=== PATIENT | female | born 1955 | race Caucasian/White ===

== ENCOUNTER 2020-12-12 17:25 | Emergency (ER) | payer OTHER, SELFPAY ==
--- NOTE | ~2020-12-12 | XR_ITS ---
XR chest 2V DATE: 12/12/2020 17:55 INDICATION: Cough TECHNIQUE: 2 views COMPARISON: None FINDINGS: Mild cardiomegaly. No hilar or mediastinal enlargement. No pulmonary infiltrate or consolid ation, pleural effusion or pulmonary vascular congestion or pneumothorax. Diffuse osteopenia. IMPRESSION: Mild cardiomegaly; no active pulmonary disease Diffuse osteopenia Reviewed, dictated and finalized at location A.
[2020-12-12 17:38] VITALS: BP 116/72; PULSE 65; RESP 18; TEMP 36.9; O2SAT 98
--- NOTE | 2020-12-12 17:42 | ED.URI ---
HPI - URI/Sore Throat General Chief Complaint: Upper Respiratory Infection Stated Complaint: Cough Time Seen by Provider: 12/12/20 17:42 Source: patient Mode of arrival: ambulatory Limitations: no limitations History of Present Illness HPI Narrative: Osiris Dubose is a 65 yo female with a PMH of high cholesterol, HTN, asthma, GERD, comes to [facility] with 3 days of asthma symptoms after doing yard work on Monday and where she works there is a lot of dust because of [employer] being cut. States she does not feel short of breath and has a constant little aggravating cough Related Data Home Medications Medication Instructions Recorded Confirmed gemfibrozil 600 mg PO DAILY 03/25/19 12/12/20 lisinopril 20 mg PO DAILY 03/25/19 12/12/20 fenofibrate nanocrystallized 145 mg PO DAILY 12/12/20 12/12/20 pantoprazole 40 mg PO DAILY 12/12/20 12/12/20 Allergies Allergy/AdvReac Type Severity Reaction Status Date / Time No Known Allergies Allergy Verified 12/12/20 17:27 Review of Systems Review of Systems: CONSTITUTIONAL: Denies fever, chills, sweats. EYES: Denies visual changes, redness, discharge. ENT: Denies rhinorrhea, congestion, sore throat, otalgia. CARDIOVASCULAR: Denies chest pain, palpitations, edema. RESPIRATORY: Denies dyspnea, wheezing, has cough GASTROINTESTINAL: Denies abdominal pain, nausea, vomiting, diarrhea. GENITOURINARY: Denies dysuria, hematuria, abnormal discharge SKIN: Denies rash or itching. NEUROLOGIC: Denies numbness, or focal weakness. PSYCHIATRIC: Denies anxiety or depression. PMFSH Past Medical History Medical History Asthma GERD (gastroesophageal reflux disease) High cholesterol HTN (hypertension) Social History Social History (Updated 12/12/20 @ 18:10 by Lynnette Zarate CNP) Smoking status: Never smoker Alcohol intake: never Living arrangements: alone Gender identity (if verbalized by the patient): Female Comments At time of signature, I agree with nursing past medical, surgical, social and family history. There is no relevant family history pertinent to the presenting complaint. Exam Narrative: GENERAL: This is a well-nourished, well-developed patient, in mild distress. HEAD: normocephalic, atraumatic. EYES: Sclera clear/white. Vision is grossly intact. EARS: External ears normal, Hearing grossly intact. NOSE: External nose normal without nasal discharge, nares without redness, no rhinorrhea. THROAT: Mucous membranes moist, posterior pharynx pink and clear CARDIOVASCULAR: Regular rate and rhythm without murmurs, gallops, or rubs. RESPIRATORY: Coarse to auscultation. Breath sounds equal bilaterally. No wheezes, rales, or rhonchi. Intermittent dry cough while examining patient GASTROINTESTINAL: Abdomen soft, SKIN: warm, intact with no suspicious lesions or rash, good texture and turgor. NEURO: awake, alert, and oriented to person, place and time. There were no obvious focal neurologic abnormalities. Steady gait EXTREMITIES: Normal range of motion. BACK: Nontender without deformity Course Course Emergency Course: Patient here with increased use of inhaler and constant cough that is keeping her awake at night Chest x-ray done-mild cardiomegaly, no hilar or mediastinal enlargement. No pulmonary infiltrate or consolidation pleural effusion or pulmonary vascular congestion; diffuse osteopenia Given prednisone 60 mg here Started on prednisone 40 mg daily, Tessalon Perles, albuterol inhaler renewed; will continue to take Zyrtec and Flonase Vital Signs Vital signs: Vital Signs Temperature 98.4 F 12/12/20 17:38 Pulse Rate 65 12/12/20 17:38 Respiratory Rate 12/12/20 17:38 Blood Pressure 116/72 12/12/20 17:38 Pulse Oximetry 98 12/12/20 17:38 Temperature 98.4 F 12/12/20 17:38 Pulse Rate 65 12/12/20 17:38 Respiratory Rate 18 12/12/20 17:38 Blood Pressure 116/72 12/12/20 17:38 Pulse Oxi
[2020-12-12] MEDS: predniSONE 20 MG TABLET 60 MG PO (18:06)
== END 2020-12-12 18:38 | disposition home or self-care (01) ==
PROVIDERS: Emergency Provider Nurse Practitioner; PCP Internal Medicine
DX: J45.31 Mild persistent asthma with (acute) exacerbation (principal); I10 Essential (primary) hypertension
CPT/HCPCS: 71046; 99213; G0463; J7512

== ENCOUNTER 2021-08-13 08:35 | Emergency (ER) | payer OTHER, SELFPAY ==
--- NOTE | 2021-08-13 08:55 | ED.URI ---
HPI - URI/Sore Throat General Chief Complaint: Upper Respiratory Infection Stated Complaint: Cough Time Seen by Provider: 08/13/21 08:55 Source: patient Mode of arrival: ambulatory Limitations: no limitations History of Present Illness HPI Narrative: 66-year-old female presents with complaint of seasonal allergy symptoms with dry cough. Has had symptoms for 4 days. States that she takes Zyrtec twice a day, Singulair and Flonase. Called her primary care physician regarding dry cough and was told to take DayQuil NyQuil cold and sinus. Reports that she still has a dry cough. No shortness of breath. States that her coworkers are concerned that she is contagious. All systems reviewed and negative except as noted above. Related Data Home Medications Medication Instructions Recorded Confirmed gemfibrozil 600 mg PO DAILY 03/25/19 08/13/21 lisinopril 20 mg PO DAILY 03/25/19 08/13/21 fenofibrate nanocrystallized 145 mg PO DAILY 12/12/20 08/13/21 pantoprazole 40 mg PO DAILY 12/12/20 08/13/21 Allergies Allergy/AdvReac Type Severity Reaction Status Date / Time cat dander Allergy Unknown Verified 08/13/21 08:52 latex Allergy Rash Verified 08/13/21 08:52 mold Allergy Unknown Verified 08/13/21 08:52 pollen extracts Allergy Unknown Verified 08/13/21 08:52 tree and shrub pollen Allergy Unknown Verified 08/13/21 08:52 Review of Systems Review of Systems: CONSTITUTIONAL: Denies fever, chills, or sweats. EYES: Denies visual changes, redness, or discharge. ENT: Reports rhinorrhea, congestion. Denies sore throat, or otalgia. CARDIOVASCULAR: Denies chest pain, palpitations, or edema. RESPIRATORY: Reports cough. Denies dyspnea. GASTROINTESTINAL: Denies abdominal pain, nausea, vomiting, or diarrhea. GENITOURINARY: Denies dysuria or hematuria. SKIN: Denies rash or itching. MUSCULOSKELETAL: Denies back pain, joint pain, or myalgia. NEUROLOGIC: Denies headache, numbness, or weakness. PSYCHIATRIC: Denies anxiety or depression. All other systems reviewed are negative, except as documented in HPI. [facility] Past Medical History Medical History Asthma GERD (gastroesophageal reflux disease) High cholesterol HTN (hypertension) Social History Social History (Updated 12/12/20 @ 18:10 by Lynnette Zarate CNP) Smoking status: Never smoker Alcohol intake: never Gender identity (if verbalized by the patient): Female Comments At time of signature, agree with nursing past medical, surgical, social and family history. There is no relevant family history pertinent to the presenting complaint. Exam Narrative: GENERAL: This is a well-nourished, well-developed patient, in no apparent distress. HEAD: normocephalic, atraumatic. EYES: PERRL. Sclera clear/white. Vision is grossly intact. EARS: External ears normal, auditory canals clear and without drainage, TMs normal without perforation. Hearing grossly intact. NOSE: External nose normal with no obvious nasal discharge, nares without redness, no rhinorrhea. No sinus tenderness. THROAT: Mucous membranes moist, clear postnasal drainage noted. NECK: Neck supple, non-tender without lymphadenopathy, masses or thyromegaly. CARDIOVASCULAR: Regular rate and rhythm without murmurs, gallops, or rubs. RESPIRATORY: Clear to auscultation. Breath sounds equal bilaterally. No wheezes, rales, or rhonchi. SKIN: warm, Dry, intact with no suspicious lesions or rash, good texture and turgor. NEURO: awake, alert, and oriented to person, place and time. There were no obvious focal neurologic abnormalities. EXTREMITIES: Normal range of motion to all extremities. Course Course Level of Care: Express Care Visit Vital Signs Vital signs: Reviewed MDM - URI/Sore Throat MDM Narrative Medical decision making narrative: Patient is aware of diagnosis, understands and agrees to treatment plan. Anticipatory guidance given. Patient agrees to follow-up as directed
== END 2021-08-13 09:19 | disposition home or self-care (01) ==
PROVIDERS: Emergency Provider Nurse Practitioner Family; PCP Internal Medicine
DX: R05.9 Cough, unspecified (principal); J30.2 Other seasonal allergic rhinitis; J45.909 Unspecified asthma, uncomplicated; K21.9 Gastro-esophageal reflux disease without esophagitis; E78.00 Pure hypercholesterolemia, unspecified; I10 Essential (primary) hypertension
CPT/HCPCS: 99213; G0463

== ENCOUNTER 2022-03-12 08:17 | Emergency (ER) | payer OTHER, SELFPAY ==
[2022-03-12 08:32] VITALS: BP 151/74; PULSE 95; RESP 16; TEMP 37.8; O2SAT 98
--- NOTE | 2022-03-12 08:44 | ED.URI ---
HPI - URI/Sore Throat General Chief Complaint: Upper Respiratory Infection Stated Complaint: cough Time Seen by Provider: 03/12/22 08:44 Source: patient, RN notes reviewed and old records reviewed Mode of arrival: ambulatory Limitations: no limitations History of Present Illness HPI Narrative: 66-year-old female presents to the [facility] with complaints bilateral eye drainage, sensitivity to light with redness that started , 2 days ago. Started with a cough on Monday, 6 days ago. Denies any fevers, chest pain, abdominal pain. Denies any blurry vision or change in vision. Eyes have been matted shut the last 2 mornings. Has been using baby wipes to clear her eyes. No periorbital erythema or swelling. No pre-auricular lymph node swelling Recently had her hemorrhoids banded at Dr Gibbs Related Data Home Medications Medication Instructions Recorded Confirmed gemfibrozil 600 mg tablet 600 mg PO DAILY 03/25/19 03/12/22 lisinopril 20 mg tablet 20 mg PO DAILY 03/25/19 03/12/22 fenofibrate nanocrystallized 145 145 mg PO DAILY 12/12/20 03/12/22 mg tablet pantoprazole 40 mg tablet,delayed 40 mg PO DAILY 12/12/20 03/12/22 release Allergies Allergy/AdvReac Type Severity Reaction Status Date / Time amoxicillin [From Augmentin] Allergy Unknown Verified 03/12/22 09:01 cat dander Allergy Unknown Verified 03/12/22 09:01 clavulanic acid Allergy Unknown Verified 03/12/22 09:01 [From Augmentin] codeine Allergy Unknown Verified 03/12/22 09:01 latex Allergy Rash Verified 03/12/22 09:01 linaclotide [From Linzess] Allergy Unknown Verified 03/12/22 09:01 mold Allergy Unknown Verified 03/12/22 09:01 pollen extracts Allergy Unknown Verified 03/12/22 09:01 tree and shrub pollen Allergy Unknown Verified 03/12/22 09:01 Review of Systems Review of Systems: All systems reviewed & are unremarkable except as noted in HPI and below Constitutional: Constitutional: Reports no additional constitutional complaints Eyes: Eyes: Reports as per HPI, Denies change in vision and Reports photophobia ENT: Reports system reviewed and no additional complaints, except as documented Cardiovascular: Cardiovascular: Reports no additional cardiovascular complaints, Denies chest pain and Denies dyspnea Respiratory: Respiratory: Reports as per HPI, Reports no additional respiratory complaints, Denies chest congestion, Reports cough, Denies dyspnea and Denies wheezing Gastrointestinal: Gastrointestinal: Reports no additional gastrointestinal complaints, Denies abdominal pain, Denies nausea and Denies vomiting Musculoskeletal: Musculoskeletal: Reports no additional musculoskeletal complaints Integumentary/Breasts: Skin/Breast: Reports system reviewed and no additional complaints, except as docu Neurologic: Reports system reviewed and no additional complaints, except as documented Psychiatric: Psychiatric: Reports no additional psychiatric complaints Allergic/Immunologic: Allergic/Immunologic: Reports no additional allergic/immunologic complaints PMFSH Past Medical History Medical History (Updated 03/12/22 @ 09:06 by Azra Krishnna APRN) Asthma GERD (gastroesophageal reflux disease) High cholesterol HTN (hypertension) Surgical History Surgical History (Updated 03/12/22 @ 09:06 by Azra Krishnan APRN) H/O hemorrhoidectomy banding 03/17 Social History Social History Smoking status: Never smoker Alcohol intake: never Gender identity (if verbalized by the patient): Female Comments At the time of my signature, I reviewed and agree with the nursing past medical, surgical, social, and family history. There is no relevant family history pertinent to the patient complaint. Exam Const: General: cooperative, healthy appearing, comfortable, no acute distress, well developed, alert and well nourished Nutritional Appearance: well nourished and obese Orientation/consciousn
== END 2022-03-12 09:11 | disposition home or self-care (01) ==
PROVIDERS: Emergency Provider Nurse Practitioner
DX: H10.9 Unspecified conjunctivitis (principal); J40 Bronchitis, not specified as acute or chronic; J45.909 Unspecified asthma, uncomplicated; K21.9 Gastro-esophageal reflux disease without esophagitis; E78.00 Pure hypercholesterolemia, unspecified; I10 Essential (primary) hypertension
CPT/HCPCS: 99213; G0463

== ENCOUNTER 2023-03-30 14:57 | Emergency (ER) | payer OTHER, SELFPAY ==
[2023-03-30 15:12] VITALS: BP 137/58; PULSE 16; RESP 16; TEMP 36.6; O2SAT 100
--- NOTE | 2023-03-30 15:19 | ED.EAR ---
HPI - Ear Problem General Chief complaint: Ear Stated complaint: left ear pain,sinus issue,left jaw hurts Time Seen by Provider: 03/30/23 15:19 Source: patient Mode of arrival: ambulatory Limitations: no limitations History of Present Illness HPI Narrative: 68-year-old female presents with complaint of left-sided sinus pressure since March 02. Reports getting progressively worse, now has pain to left ear. Takes Shahla and Flonase daily. Has tried Neti pot with no relief of symptoms. Has appointment with her ENT April 12. Afebrile. All systems reviewed and negative except as noted above. Related Data Home Medications Medication Instructions Recorded Confirmed gemfibrozil 600 mg tablet 600 mg PO DAILY 03/25/19 03/30/23 lisinopril 20 mg tablet 20 mg PO DAILY 03/25/19 03/30/23 fenofibrate nanocrystallized 145 145 mg PO DAILY 12/12/20 03/30/23 mg tablet pantoprazole 40 mg tablet,delayed 40 mg PO DAILY 12/12/20 03/30/23 release Allergies Allergy/AdvReac Type Severity Reaction Status Date / Time amoxicillin [From Augmentin] Allergy Unknown Verified 03/30/23 14:58 cat dander Allergy Unknown Verified 03/30/23 14:58 clavulanic acid Allergy Unknown Verified 03/30/23 14:58 [From Augmentin] codeine Allergy Unknown Verified 03/30/23 14:58 latex Allergy Rash Verified 03/30/23 14:58 linaclotide [From Linzess] Allergy Unknown Verified 03/30/23 14:58 mold Allergy Unknown Verified 03/30/23 14:58 pollen extracts Allergy Unknown Verified 03/30/23 14:58 tree and shrub pollen Allergy Unknown Verified 03/30/23 14:58 Review of Systems Review of Systems: CONSTITUTIONAL: Denies fever, chills, or sweats. EYES: Denies visual changes, redness, or discharge. ENT: Reports rhinorrhea, congestion, left sinus pressure, left ear pain. Denies sore throat CARDIOVASCULAR: Denies chest pain, palpitations, or edema. RESPIRATORY: Denies cough or dyspnea. GASTROINTESTINAL: Denies abdominal pain, nausea, vomiting, or diarrhea. GENITOURINARY: Denies dysuria or hematuria. SKIN: Denies rash or itching. MUSCULOSKELETAL: Denies back pain, joint pain, or myalgia. NEUROLOGIC: Denies headache, numbness, or weakness. PSYCHIATRIC: Denies anxiety or depression. All other systems reviewed are negative, except as documented in HPI. REPLACED BY [facility] Past Medical History Medical History (Updated 03/30/23 @ 15:28 by Shannon Bustamante NP) Asthma GERD (gastroesophageal reflux disease) High cholesterol HTN (hypertension) Surgical History Surgical History (Updated 03/12/22 @ 09:06 by Azra Krishnan APRN) H/O hemorrhoidectomy banding 03/17 Social History Social History Smoking status: Never smoker Alcohol intake: never Living arrangements: alone Gender identity (if verbalized by the patient): Female Comments At time of signature, agree with nursing past medical, surgical, social and family history. There is no relevant family history pertinent to the presenting complaint. Exam Narrative: GENERAL: This is a well-nourished, well-developed patient, in no apparent distress. HEAD: normocephalic, atraumatic. EYES: PERRL. Sclera clear/white. Vision is grossly intact. EARS: External ears normal, auditory canals clear and without drainage, right TM normal. Fluid to left TM, opaque with dull light reflex. No erythema or perforation bilaterally. NOSE: External nose normal with mild congestion with erythema swelling to bilateral nares. Tenderness on palpation of left maxillary sinus THROAT: Mucous membranes moist, Postnasal drainage without erythema. NECK: Neck supple, non-tender without lymphadenopathy, masses or thyromegaly. CARDIOVASCULAR: Regular rate and rhythm without murmurs, gallops, or rubs. RESPIRATORY: Clear to auscultation. Breath sounds equal bilaterally. No wheezes, rales, or rhonchi. SKIN: warm, Dry, intact with no suspicious lesions or rash, good te
== END 2023-03-30 15:32 | disposition home or self-care (01) ==
PROVIDERS: Emergency Provider Nurse Practitioner Family; PCP Internal Medicine
DX: H65.02 Acute serous otitis media, left ear (principal); J01.90 Acute sinusitis, unspecified; J45.909 Unspecified asthma, uncomplicated; K21.9 Gastro-esophageal reflux disease without esophagitis; E78.00 Pure hypercholesterolemia, unspecified; I10 Essential (primary) hypertension
CPT/HCPCS: 99213; G0463

== ENCOUNTER 2024-01-08 08:21 | Emergency (ER) | payer OTHER, SELFPAY ==
--- NOTE | ~2024-01-08 | XR_ITS ---
EXAMINATION: XR chest 2V DATE: 01/08/2024 09:13 INDICATION: Cough TECHNIQUE: PA and lateral views of the chest were obtained. COMPARISON: Chest radiograph dated 12/12/20 FINDINGS: The lungs are clear with no focal airspace opacities, pulmonary edema, pleural effusion or pneumothor ax. Mild cardiomegaly. Mild thoracic kyphosis with moderate spondylosis. IMPRESSION: 1. Unchanged mild cardiomegaly. No acute cardiopulmonary disease. Reviewed, dictated and finalized at location A.
[2024-01-08 08:31] VITALS: BP 143/68; PULSE 76; RESP 20; TEMP 36.6; O2SAT 98
--- NOTE | 2024-01-08 08:39 | ED.URI ---
HPI - URI/Sore Throat General Chief Complaint: Upper Respiratory Infection Stated Complaint: cough / LT ear pain Time Seen by Provider: 01/08/24 08:39 Source: patient, RN notes reviewed and old records reviewed Mode of arrival: ambulatory Limitations: no limitations History of Present Illness HPI Narrative: patient presents with complaints of cough and ear pain. She reports that left ear began hurting about a week ago, cough started 3 days ago. She reports that cough is dry and hacking. Has associated lack of energy. She has had multiple sick contacts while at work. She denies any fever. She denies any shortness of breath. She is in no distress at this time Related Data Home Medications Medication Instructions Recorded Confirmed gemfibrozil 600 mg tablet 600 mg PO DAILY 03/25/19 01/08/24 lisinopril 20 mg tablet 20 mg PO DAILY 03/25/19 01/08/24 fenofibrate nanocrystallized 145 145 mg PO DAILY 12/12/20 01/08/24 mg tablet pantoprazole 40 mg tablet,delayed 40 mg PO DAILY 12/12/20 01/08/24 release Allergies Allergy/AdvReac Type Severity Reaction Status Date / Time amoxicillin [From Augmentin] Allergy Unknown Verified 01/08/24 08:38 cat dander Allergy Unknown Verified 01/08/24 08:38 clavulanic acid Allergy Unknown Verified 01/08/24 08:38 [From Augmentin] codeine Allergy Unknown Verified 01/08/24 08:38 latex Allergy Rash Verified 01/08/24 08:38 linaclotide [From Linzess] Allergy Unknown Verified 01/08/24 08:38 mold Allergy Unknown Verified 01/08/24 08:38 pollen extracts Allergy Unknown Verified 01/08/24 08:38 tree and shrub pollen Allergy Unknown Verified 01/08/24 08:38 Review of Systems Review of Systems: All systems reviewed & are unremarkable except as noted in HPI and below Constitutional: Constitutional: Reports as per HPI, Reports no additional constitutional complaints, Denies fever(s) and Reports lethargy ENT: Reports system reviewed and no additional complaints, except as documented, Reports as per HPI and Reports otalgia Cardiovascular: Cardiovascular: Reports no additional cardiovascular complaints Respiratory: Respiratory: Reports no additional respiratory complaints and Reports cough Gastrointestinal: Gastrointestinal: Reports no additional gastrointestinal complaints PMFSH Past Medical History Medical History Asthma GERD (gastroesophageal reflux disease) High cholesterol HTN (hypertension) Surgical History Surgical History H/O hemorrhoidectomy banding 03/17 Social History Social History Smoking status: Never smoker Alcohol intake: never Living arrangements: alone Gender identity (if verbalized by the patient): Female Comments At the time of my signature, I reviewed and agree with the nursing past medical, surgical, social, and family history. There is no relevant family history pertinent to the patient complaint. Exam Const: General: cooperative, no acute distress, alert and awake Orientation/consciousness: oriented to person, oriented to place and oriented to time HENMT: Head: normal to inspection Ears: TM abnormal with fluid behind the TM bilateral Mouth: Yes moist mucous membranes Throat: posterior oropharynx normal Resp: Effort & Inspection: normal respiratory effort and able to speak in complete sentences Auscultation: clear to auscultation bilaterally, no crackles, no rales, no rhonchi and no wheezes Other: hacking cough Cardio: Palpation: normal PMI Rate: regular rate Rhythm: regular rhythm Heart sounds: S1 normal heart sound present and S2 normal heart sound present Neuro: General: oriented to person, oriented to place and oriented to time Cranial nerves: Yes CN's II-XII intact bilaterally Psych: Appearance: grossly normal Thought process: Normal thought process present
== END 2024-01-08 10:00 | disposition home or self-care (01) ==
PROVIDERS: Emergency Provider Nurse Practitioner Family; PCP Internal Medicine
DX: J06.9 Acute upper respiratory infection, unspecified (principal); J45.909 Unspecified asthma, uncomplicated; K21.9 Gastro-esophageal reflux disease without esophagitis; E78.00 Pure hypercholesterolemia, unspecified; I10 Essential (primary) hypertension
CPT/HCPCS: 71046; 99213; G0463

== ENCOUNTER 2024-02-21 15:21 | Emergency (ER) | payer OTHER, SELFPAY ==
--- NOTE | 2024-02-21 15:25 | ED.SKABFB ---
HPI - Skin/Abscess/Foreign Bdy General Chief complaint: Skin/Abscess/Foreign Body Stated complaint: Skin/Abscess/Foreign Body Time Seen by Provider: 02/21/24 15:36 Source: patient and RN notes reviewed Mode of arrival: ambulatory Limitations: dementia History of Present Illness HPI narrative: 68-year-old female presents with concern for abscess on her labia. She reports she noticed it was uncomfortable on Monday and has be getting more painful. Reports she has been using peroxide on it without relief. She denies fever, body aches, chills, sweats MD complaint: other (Redness) Related Data Home Medications Medication Instructions Recorded Confirmed lisinopril 20 mg tablet 20 mg PO DAILY 03/25/19 01/08/24 fenofibrate nanocrystallized 145 145 mg PO DAILY 12/12/20 01/08/24 mg tablet pantoprazole 40 mg tablet,delayed 40 mg PO DAILY 12/12/20 01/08/24 release albuterol sulfate 90 mcg/actuation 1 inh inhalation QID 02/21/24 02/21/24 aerosol inhaler alendronate 70 mg tablet mg PO 02/21/24 fexofenadine 60 mg tablet 60 mg PO Q12H 02/21/24 02/21/24 fluticasone propionate 50 1 spray intranasal DAILY 02/21/24 02/21/24 mcg/actuation nasal spray,suspension multivitamin 1 tablet PO DAILY 02/21/24 02/21/24 polyethylene glycol 3350 17 gram 17 g PO DAILY 02/21/24 02/21/24 oral powder packet (Miralax) Allergies Allergy/AdvReac Type Severity Reaction Status Date / Time adhesive Allergy Rash Verified 02/21/24 15:33 amoxicillin [From Augmentin] Allergy Rash Verified 02/21/24 15:33 cat dander Allergy Other Verified 02/21/24 15:33 clavulanic acid Allergy Rash Verified 02/21/24 15:33 [From Augmentin] codeine Allergy Gastrointestinal Verified 02/21/24 15:33 Upset latex Allergy Rash Verified 02/21/24 15:33 linaclotide [From Linzess] Allergy Gastrointestinal Verified 02/21/24 15:33 Upset mold Allergy Other Verified 02/21/24 15:33 pollen extracts Allergy Other Verified 02/21/24 15:33 tree and shrub pollen Allergy Other Verified 02/21/24 15:33 Review of Systems Review of Systems: CONSTITUTIONAL: Denies malaise, chills, sweats, or fever. EYES: Denies redness, or discharge. ENT: Denies rhinorrhea, congestion, swollen lips, swollen tongue CARDIOVASCULAR: Denies chest pain, palpitations, or edema. RESPIRATORY: Denies cough or dyspnea. GASTROINTESTINAL: Denies abdominal pain, nausea, vomiting SKIN: Reports painful bump on her labia. Denies purulent drainage, vesicles, bullae, numbness, pain beyond proportion MUSCULOSKELETAL: Denies joint pain or myalgia. NEUROLOGIC: Denies headache. All systems reviewed & are unremarkable except as noted in HPI and below PMFSH Past Medical History Medical History Asthma GERD (gastroesophageal reflux disease) High cholesterol HTN (hypertension) Surgical History Surgical History H/O hemorrhoidectomy banding 03/17 Social History Social History Smoking status: Never smoker Alcohol intake: never Living arrangements: alone Gender identity (if verbalized by the patient): Female Comments At time of signature, agree with nursing past medical, surgical, social and family history. There is no relevant family history pertinent to the presenting complaint Exam Narrative: GENERAL: Well-appearing, well-nourished, and in no acute distress. HEAD: Normocephalic, atraumatic. EYES: PERRLA, conjunctivae clear ENT: Mucous membranes moist. NECK: Supple. No lymphadenopathy CHEST: Clear to auscultation. No respiratory distress. HEART: Regular rate and rhythm. SKIN: Warm, dry. 1 cm diameter raised round tender erythematous papule noted to the left labia. No vesicles, bullae, necrosis, ecchymosis, crepitus noted. NEURO: Alert and oriented x3. PSYCH: Normal mood and affect Course Course Emergency Course: Patient is aware of diagnosis, understands and agrees to treatment plan. Anticipatory guidance given. Patient agrees to follow-up as directed and is aware of reasons to seek care at the emergency department. Portions of this record may have been created with voice recognition software Level of Care: Express Care Visit Vital Signs Vital signs: Reviewed. Procedures Abscess I/D other: Date of Incision: 02/21/24 Time of Incision: 15:47 Side (if applicable): left Local Anesthetic: other anesthetic (ice) Technique: incised with #11 blade Amount of fluid expressed (mL): 2 Packing used?: none I&D Results: Other (white solid material) Abcess I&D Additional Comments: very little purulent material expressed. No signs of infection. Will not prescribe ABX at this time. MDM - Skin/Abscess/Foreign Bdy MDM Narrative Medical decision making narrative: I evaluated this in the [facility]. History is obtained from patient who is an independent historian and physical exam was performed.? Available medical records were reviewed. ? Exam findings and relevant testing show no acute concerns or changes; patient is non-toxic appearing and is in no distress. No risk factors or findings concerning for epidural abscess, diskitis, vertebral osteomyelitis, cord compression, cauda equina, vertebral fracture or bone malignancy, AAA, or pyelonephritis. Patient instructed to consider further imaging and workup through their primary care physician as an outpatient if symptoms persist. Does not appear at this time to be erythema multiforme, bullous, SJS, TEN; no evidence at this time to suggest RMSF, NSTI, endocarditis or Lyme disease; patient looks well, nontoxic and is tolerating oral intake; no neurologic signs or symptoms; no headache, photophobia or neck pain; afebrile.? Patient does not have history of of penetrating trauma, laceration, blunt trauma, recent surgery, immunosuppression, malignancy, obesity, alcoholism, corticosteroid use.? Discussed the importance of follow-up, patient agrees; question, cellulitis versus necrotizing soft tissue infection versus abscess.?? Patient is appropriate for outpatient treatment and follow-up. Critical Care Time Critical Care Time Critical Care Time: No Discharge Plan Discharge Clinical Impression: Abscess of skin or subcutaneous tissue Patient Disposition: Home, Self-Care Condition: Stable Instructions: Abscess (ED) Additional Instructions: You have had an abscess drained at [facility]. You may shower - let the soapy water clean your wound, do not scrub it. Follow up with your primary care physician for a wound check. Go to the Emergency Department immediately if you develop any of the following symptoms: Fevers, Increased redness or swelling around where your abscess was, Increased pain, or Generalized weakness or vomiting If you have any worsening redness, pain, swelling you should be seen again by a your doctor or at the urgent care Please Keep the wound covered and dry. Once a day: wash the wound with soap/water, apply bacitracin or neosporin and re-cover the wound. If you have any worsening of symptoms, including severe pain/swelling/numbness/changes in sensation/weakness, redness which expands more than it is right now or any other concerns please return to the ED immediately. Prescriptions: No Action multivitamin [One A Day] Tablet 1 tablet PO DAILY polyethylene glycol 3350 [Miralax] 17 gram Powder In Packet 17 g PO DAILY fexofenadine [Shahla] 60 mg Tablet 60 mg PO Q12H alendronate 70 mg tablet PO albuterol sulfate [ProAir HFA] 90 mcg/actuation Hfa Aerosol Inhaler 1 inh INHALATION QID fluticasone propionate [Flonase] 50 mcg/actuation [place],Suspension 1 spray INTRANASAL DAILY Rx Instructions: administer into each nostril fenofibrate nanocrystallized 145 mg tablet 145 mg PO DAILY pantoprazole 40 mg tablet,delayed release (DR/EC) 40 mg PO DAILY lisinopril 20 mg tablet 20 mg PO DAILY Follow-up/Referrals: Juan Francisco,Magda Campuzano MD [Primary Care Provider] - Time of Disposition: 16:16
[2024-02-21 15:29] VITALS: BP 151/61; PULSE 67; RESP 16; TEMP 36.4; O2SAT 100
[2024-02-21 15:37] VITALS: BP 151/61; PULSE 67; RESP 16; TEMP 36.4; O2SAT 100
[2024-02-21] MEDS: LIDOCAINE, EPINEPHRINE, TETRACAINE VISCOUS SOLN 3 ML TOPICAL (15:52)
== END 2024-02-21 16:22 | disposition home or self-care (01) ==
PROVIDERS: Emergency Provider Nurse Practitioner; PCP Internal Medicine
DX: N76.4 Abscess of vulva (principal); I10 Essential (primary) hypertension; E78.00 Pure hypercholesterolemia, unspecified; K21.9 Gastro-esophageal reflux disease without esophagitis; J45.909 Unspecified asthma, uncomplicated
CPT/HCPCS: 56405; 99212; G0463

== ENCOUNTER 2024-05-12 08:47 | Emergency (ER) | payer OTHER, SELFPAY ==
--- OUTSIDE RECORDS SUMMARY | 2024-05-12 08:51 | XMS_ITS | Clinical Summary ---
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 Role Phone Magda Chicas MD Primary Care Provider Allergies Active Allergy Reactions Criticality Noted Date Comments Amoxicillin-Pot Clavulanate Diarrhea,Vomiting High 06/03/2019 Cat Dander Eye irritation,Sneezing Low 05/20/2022 Codeine Stomach upset,Vomiting Low 02/20/2016 Latex Rash Medium 01/01/2019 Longoria rash Linaclotide Diarrhea Medium 06/03/2019 Pollen Extracts Eye irritation Low 11/23/2021 Medications multivitamin tabletIndications:Vi tamin Deficiency Prevention Take 1 tablet by mouth every morning Active polyethylene glycol (MIRALAX) 17 gram packetIndications:co nstipation Take 1 packet (17 g total) by mouth nightly Active fluticasone propionate (FLONASE) 50 mcg/actuation nasal spray Administer 2 sprays into each nostril daily 16 g 11 06/26/19 20 Active Additional Information Patient taking differently: 1 sprayeach nostril2 times daily, Indications: Allergic Rhinitis, Reported on 05/20/2022 fexofenadine (FAM) 180 mg tabletIndications:Al lergic Rhinitis Take 1 tablet (180 mg total) by mouth nightly Active lisinopriL (PRINIVIL,ZESTRIL) 20 mg tablet Take 1 tablet (20 mg total) by mouth daily 100 tablet 1 10/23/19 24 Active alendronate (FOSAMAX) 70 mg tablet Take 1 tablet (70 mg total) by mouth every 7 days Take in the morning with a full glass of water, on an empty stomach, and do not take anything else by mouth or lie down for the next 30 min. 12 tablet 3 10/23/[address] (PROTONIX) 40 mg EC tabletIndications:La ryngopharyngeal reflux (LPR) TAKE 1 TABLET(40 MG) BY MOUTH DAILY 90 tablet 01/22/20 24 Active fenofibrate nanocrystallized (TRICOR) 145 mg tabletIndications:Mi xed hyperlipidemia Take 1 tablet (145 mg total) by mouth daily 100 tablet 3 03/25/20 24 Active Active Problems Problem Noted Date Diagnosed Date Class 2 severe obesity due t o excess calories with serious comorbidity and body mass index (BMI) of 36.0 to 36.9 in adult 04/10/2023 Deviated nasal septum 11/23/2021 Assessment & Plan (11/23/2021 9:18 AM CDT): She does have a deviated nasal septum. I told her that I really do not think that is causing her cough. It is otherwise asymptomatic so I do not recommend any intervention. Laryngopharyngeal reflux (LPR) 11/23/2021 Assessment & Plan (04/16/2023 5:01 PM CRUSHER SUPERVISOR): This seems to be under pretty good control. No need for further intervention. Taking medication as needed. Assessment & Plan (02/07/2023 7:59 PM CRUSHER SUPERVISOR): She seems to do quite a bit better on this medication. She does have occasional breakthrough symptoms and I felt that she could try taking the [id number] pantoprazole when that happens. Otherwise no need for further intervention. Refills being given. Assessment & Plan (11/23/2021 9:18 AM CDT): I think this is likely with causing the cough. Increasing her PPI to twice a day. History of eye trauma 06/29/2021 Overview (06/29/2021): Hx R orbital floor blowout fx 04/2015, observed: --> Received facial CT report from [facility] in [place], [place]. --scanned in 12/2019 Assessment & Plan (07/11/2023 12:57 PM CDT): Hx R orbital floor blowout fx 04/2015, observed: --> Received facial CT report from [facility] in [place], [place]. --scanned in 12/2019 No residual visual issues. Doesn't get diplopia much. Sometimes gets and then blinks to resolve Assessment & Plan (01/10/2023 1:30 PM CDT): Small inferior defect on Correia visual field (HVF) OD Non dfe today, could have old commotio or CRS, nature of defect not glaucomatous in nature Assessment & Plan (07/05/2022 10:25 AM CDT): Hx R orbital floor blowout fx 04/2015, observed: --> Received facial CT report from [facility] in [place], [place]. --scanned in 12/2019 No residual visual issues. Doesn't get diplopia much. Sometimes gets and then blinks to resolve Assessment & Plan (06/29/2021 10:12 AM CDT): Hx R orbital floor blowout fx 04/2015, observed: --> Received facial CT report from [facility] in [place], [place]. --scanned in 12/2019 May be related to current diplopia, but pt only noticed today. Will check if monocular or binocular. Try higher OTC for near. Call if recurs. Hemorrhoids 07/20/2020 Suspected glaucoma of both eyes 08/01/2016 Overview (06/29/2021): Hx borderline C:D asymmetry, borderline IOP, following as OAG suspect: + FH, + hx po pred (e.g., for allergies), but thick pach, --pach about 630 OU in 03/04 --gonio D30r, gr I-II pigment OU in 03/04 --HVF WNL OU --nerve OCT WNL OU, stable vs. 07/2018 (before, had stable HRT's) --> Observe. --> F/U 1 year HVF/nerve OCT/DFE. Assessment & Plan (04/11/2024 11:26 AM CRUSHER SUPERVISOR): Full visual field (VF), IOPs normal range Monitor RTC in 6 months for DFE, OCT ON Dr. Ceja Assessment & Plan (07/11/2023 1:51 PM CDT): Strong FHx intraocular pressure (IOP) normal today Thick pachs noted today; no change in ONOCT since 2019 No drops yet Today noted left eye (OS)>right eye (OD) CDR. Assessment & Plan (01/10/2023 1:30 PM CDT): Normal RNFL, no correlation with inferior defect on Correia visual field (HVF) right eye (OD) Monitor Assessment & Plan (07/05/2022 10:23 AM CDT): Strong FHx intraocular pressure (IOP) better today, but slightly higher than normal Thick pachs noted today; no change in ONOCT since 2019 No drops yet Assessment & Plan (09/28/2021 2:07 PM CDT): Strong FHx intraocular pressure (IOP) better today, but slightly higher than normal Repeat pach today No drops yet Assessment & Plan (06/29/2021 10:14 AM CDT): Strong FHx Thick pach intraocular pressure (IOP) high today- first in a while Noted HVF today without any glaucomatous defects and ONOCT WNL both eyes (OU). Will recheck intraocular pressure (IOP) in a few months Gastroesophageal reflux disease 09/10/2010 Hyperlipidemia 09/10/2010 Recurrent sinusitis 09/10/2010 Hypertension 09/10/2010 Bronchial asthma 09/10/2010 Resolved Problems Problem Noted Date Diagnosed Date Resolved Date Tendonitis, Achilles, left 05/19/2022 0 05/02/2024 Overview (05/19/2022): Added automatically from request for surgery [id number] Cough 11/23/2021 01/11/2022 Assessment & Plan (11/23/2021 9:17 AM CDT): We talked about her cough. I told her that there are a lot of things that can cause a cough. Most of these been ruled out thus far. I think that reflux is likely the source of this. We discussed laryngopharyngeal reflux disease. It could be causing these symptoms. It can be improved through dietary management and we talked about various dietary changes to consider. Also discussed aggressive treatment through twice a day proton pump inhibitors. I also provided some literature regarding this type of reflux and this included instructions on dietary management. We also discussed the potential long-term side effects of proton pump inhibitors including liver and kidney disease and increased risk of dementia. I do not intend to continue treatment with this medication indefinitely unless there was no other way to get the symptoms under control and the patient wishes to continue taking them. We decided to increase the pantoprazole to twice a day with a follow-up in about 6 weeks. She is agreeable with that. Chronic cough 09/20/2021 05/02/2024 Assessment & Plan (01/04/2022 1:12 PM CDT): The cough is pretty well resolved. I think at this point she can reduce her PPIs to once a day. If she develops a cough again at some point she simply needs to resume twice a day until it clears. Otherwise there is no need for further intervention. Follow-up with me as needed. Age-related nuclear cataract of both eyes 06/29/2021 05/02/2024 Assessment & Plan (04/11/2024 10:02 AM CRUSHER SUPERVISOR): Mild cataract OU. Vision is stable. Patient is satisfied with PAL- no issues with ADLs Will monitor. Assessment & Plan (07/11/2023 1:50 PM CDT): Not visually significant. Do not recommend surgery at this time. Continue to monitor. Patient to call if problems with activities of daily living. Will try first Mrx for distance/progressive. Assessment & Plan (01/10/2023 1:42 PM CDT): Mild v/s, monitor Assessment & Plan (07/05/2022 10:24 AM CDT): Not visually significant. Do not recommend surgery at this time. Continue to monitor. Patient to call if problems with activities of daily living. Assessment & Plan (09/28/2021 2:09 PM CDT): Assessment & Plan (06/29/2021 10:13 AM CDT): Not visually significant. Do not recommend surgery at this time. Continue to monitor. Patient to call if problems with activities of daily living. Brochure offered/given. Left ear pain 06/03/2019 10/12/2023 Assessment & Plan (04/16/2023 5:02 PM CRUSHER SUPERVISOR): I do not find any evidence of an ear infection or inflammation. I talked with the patient about possible reasons for ear pain that could be coming from another source. There is some potential for TMJ disorder to cause this. Also some potential for ear pain due to cervical strain or shoulder problems. She continues have problems I will recommend a CT scan of the spine. I am going to treat with a steroid pack which may give her some symptomatic relief. She understands. She will let me know for problems continue. Bilateral leg pain 12/03/2018 Screening for diabetes mellitus (DM) 12/03/2018 11/18/2020 Slow transit constipation 12/03/2018 Trichiasis 07/13/2015 11/18/2020 Encounters Date Type Department Care Team Description 04/22/2024 1:43 PM CRUSHER SUPERVISOR - 04/22/2024 11:59 PM CRUSHER SUPERVISOR Hospital Encounter [facility] Breast Imaging [address] [place] [id number] Screening mammogram, encounter for Discharge Disposition: Discharge to home or self care 04/11/2024 9:30 AM CRUSHER SUPERVISOR Office Visit [facility] [address] [facility], [address] [place] [address] Anny Motley, OD Suspected glaucoma of both eyes (Primary Dx); Age-related nuclear cataract of both eyes 04/11/2024 9:00 AM CRUSHER SUPERVISOR Imaging Exam [facility] [address] [address] Suspected glaucoma of both eyes from Last 3 Months Immunizations Immunization Administration Dates Next Due COVID-19 mRNA (Black Drumm) 0.3 m L (30 mcg) vaccine (12 years and up) 01/02/2023 Hep A, 3 Dose 12/02/1999 Hep A, Pediatric 08/08/2000 Hep B, Unspecified 08/08/2000,01/24/2000, 000 Influenza, Quadrivalent, Estella l Culture-based MDCK, Preservative Free, Antibiotic Free, Intramuscular 01/04/2021 Influenza, Quadrivalent, Hig h Dose, Preservative Free, Intrr 12/22/2022 Influenza, Quadrivalent, Spl it, Intramuscular 12/05/2016 Influenza, Quadrivalent, Spl it, Preservative Free, Intramuscular 01/07/2022,01/20/2020,01/01/2019,01/08 Influenza, Trivalent, IM (MDV) 01/07/2014 Influenza, Trivalent, Preser vative Free, Intramuscular 01/15/2018,01/30/2016,02/01/2015 Influenza, Unspecified 01/03/2022,01/04/2021 Pfizer SARS-CoV-2 Monovalent Vaccination (12+ Yrs) BUENROSTRO-READY TO USE 08/30/2021 Pfizer SARS-CoV-2 Monovalent Vaccination (12+ Yrs) PURPLE 01/03/2022,12/28/2020,06/10/2020,05/20 Pfizer Sars-Cov-2 Bivalent V accination (12+ YRS) 12/27/2021 Td, adsorbed 08/08/2000 Tdap 11/26/2020 ZOSTER LIVE 03/27/2016 ZOSTER Recombinant 05/10/2022,01/18/2022 Surgical History Surgery Date Site/Laterality Comments HYSTERECTOMY 03/27/1986 - 03/26/1987 TONSILLECTOMY 03/27/1972 - 03/26/1973 CARPAL TUNNEL RELEASE 03/27/1998 - 03/26/1999 Right COLON POLYPECTOMY 02/24/2022 - 03/26/2022 rectal banding at same time HERNIA REPAIR 03/27/1986 - 03/26/1987 BREAST BIOPSY 05/05/2022 Left benign Medical History Medical History Date Comments GERD (gastroesophageal reflux disease) Hyperlipidemia OAG (open angle glaucoma) Bronchial asthma Allergic rhinitis Hypertension Gastric reflux Obesity Seizures (HCC) PONV (postoperative nausea and vomiting) with narcotics Motion sickness Family History Medical History Relation Name Comments Asthma Father dad Colon polyps Father dad Glaucoma Father dad Hypertension Father dad Breast cancer Maternal Grandmother grandma Cancer Maternal Grandmother grandma Arthritis Mother mom Cancer Mother mom Clotting disorder Mother mom Glaucoma Mother mom Hypertension Mother mom Lymphoma Mother mom Miscarriages / Stillbirths Mother mom Motion Sickness Mother mom PONV Mother mom Breast cancer Paternal Grandfather Breast cancer Paternal Grandmother grandmother Cancer Paternal Grandmother grandmother Glaucoma Sister allergy induced asthma Son Macular degeneration Neg Hx Ovarian cancer Neg Hx Retinal detachment Neg Hx Uterine cancer Neg Hx Relation Name Status Comments Brother Father dad Alive Maternal Grandmother grandma Mother mom Alive Paternal Grandfather Paternal Grandmother grandmother Sister Alive Son Alive Social History Tobacco Use Types Packs/Day Years Used Date Smoking Tobacco: Never Passive Smoke Exposure: Never Smokeless Tobacco: Never Tobacco Cessation:Counseling Given: Not Answered Alcohol Use Standard Drinks/Week Comments Never 0 (1 standard drink = 0.6 oz pur e alcohol) AUDIT-C Answer Date Recorded Q1: How often do you have a drink containing alcohol? Never 05/25/2022 Q2: How many drinks containi ng alcohol do you have on a typical day when you are drinking? Patient does not drink Q3: How often do you have si x or more drinks on one occasion? 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 file Not on file Not on fi le Obstetrics History Para Term AB IAB SAB Ectopic Multiple Livin g Live Births 1 1 1 1 1 Date Outcome GA Total Labor Labor/2nd/3rd Weight Sex Type Anes PTL Latosha A1 A5 Name Clin Term Comments 03/16/30 Last Filed Vital Signs Vital Sign Reading Time Taken Comments Blood Pressure 124/70 01/03/2024 10:07 AM CDT Pulse 81 10/23/2023 10:33 AM CDT Temperature 36.5 C (97.7 F) 10/23/2023 10:33 AM CDT Respiratory Rate 18 04/12/2023 3:30 PM CRUSHER SUPERVISOR Oxygen Saturation 96% 10/23/2023 10:33 AM CDT Inhaled Oxygen Concentration - - Weight 84.4 kg (186 lb) 01/03/2024 10:07 AM CDT Height 149.9 cm (4' 11 ) 01/03/2024 10:07 AM CDT Body Mass Index 37.57 01/03/2024 10:07 AM CDT Plan of Treatment Health Maintenance Due Date Last Done Comments Pneumococcal vaccine 65+ (1 of 2 - PCV) 1961 Covid-19 Vaccine (2023-2 5 season) 2023 01/02/2023, 01/03/2022, 12/27/2021, Additional history exists Fall Risk Assessment 04/10/2024 04/10/2023, 05/25/2022, 01/18/2022, Additional history exists Well Visit 65+ 04/10/2024 04/10/2023, 12/26, 11/26/2020 Depression Screening 10/22/2024 10/23/2023, 05/11/2023, 04/10/2023, Additional history exists Breast Cancer Screening-Mammogram 04/22/2025 04/22/2024, 04/04/2023, 03/22/2022, Additional history exists Osteoporosis Screening-Bone Density Scan 05/16/2025 05/16/2023, 12/04/2017 DTaP/Tdap/Td Vaccine (2 - Td or Tdap) 11/26/2030 11/26/2020, 08/08/2000 Colon Cancer Screening-Colonoscopy 03/09/2032 03/09/2022, 07/24/2017 Hepatitis B Screening Completed 08/08/2000 , 01/24/2000, 12/02/1999 Hepatitis C Screening Completed 01/13/2020 Colon Cancer Screening-CT Colonography Discontinued 03/09/2022, 07/24/2017 Colon Cancer Screening-DNA Stool Discontinued 03/09/20, 07/24/2017 Colon Cancer Screening-FIT Discontinued 03/09/2022, Colon Cancer Screening-Sigmoidoscopy Discontinued 03/09/2022, 07/24/2017 Zoster Vaccine Completed 05/10/2022, 12/26, 03/27/2016 Influenza Vaccine Completed 02/11/2024, , 01/07/2022, Additional history exists Medical Devices Implanted Type Area Shroudman Device Identifier Shelf Expiration Date Model / Serial / Lot [employer] Tenodesis 6.25mm 15mm Acl Screw Interference Biocomposite Sterile [id number] - S0 - [id number] Implanted:Qty: 1 on 05/25/2022 by Armen Ortega MD at [facility] Screw Left: Calcaneus [employer] [id number] 01/24/2026 [id number] / 0 / [id number] [employer] Corkscrew Ii Fiberwire 5.5mm 16.3mm 2 2 Full Thread [place] Suture [id number] - [id number] Implanted:Qty: 1 on 05/25/2022 by Armen Ortega MD at [facility] Left: Calcaneus [employer] [id number] 04/26/2025 [id number] / / [id number] [employer] Corkscrew Ii Fiberwire 5.5mm 16.3mm 2 2 Full Thread [place] Suture [id number] - [id number] Implanted:Qty: 1 on 05/25/2022 by Armen Ortega MD at [facility] Left: Calcaneus [employer] [id number] 04/26/2025 [id number] / / [id number] Procedures Procedure Name Priority Date/Time Associated Diagnosis Comments SCREENING MAMMOGRAM BILATERAL W TIBURCIO Schedule Routine, Read Routine (OP Routine) 04/22/2024 2:06 PM CRUSHER SUPERVISOR Screening mammogram, encounter for CORREIA VISUAL FIELD - OU - BOTH EYES Routine 04/11/2024 9:33 AM CRUSHER SUPERVISOR Suspected glaucoma of both eyes DEXA AXIAL SKELETON BONE DENSITY 1 OR MORE SITES Schedule Routine, Read Routine (OP Routine) 05/16/2023 7:45 AM CRUSHER SUPERVISOR Abnormal bone density screening HM COLONOSCOPY Routine 03/09/2022 HEPATITIS C ANTIBODY Routine 01/13/2020 8:44 AM CDT Encounter for hepatitis C screening test for low risk patient from Last 3 Months or Most Recently Relevant to Health Maintenance Results * Screening Mammogram Bilateral W Tiburcio (04/22/2024 2:06 PM CRUSHER SUPERVISOR) Anatomical Region Laterality Modality Breast Bilateral Mammography Impressions 04/22/2024 3:36 PM CRUSHER SUPERVISOR BI-RADS ATLAS category (overall): 1 - Negative There is no mammographic evidence of malignancy. A 1 year screening mammogram is recommended. The patient has been or will be contacted. We recommend annual screening mammography for women at average risk of breast cancer beginning at age 40, based on guidelines of the [place] [employer] (ACR Practice Parameter for the Performance of Screening and Diagnostic Mammography) and [place] [employer]. For women with and elevated risk of breast cancer, please refer to the ACR Practice Parameter for specific screening recommendations. The patient will be entered into a reminder system with a target due date of 1 year for her next screening exam. Narrative 04/22/2024 3:36 PM CRUSHER SUPERVISOR Screening Mammogram Bilateral W Tiburcio: 04/22/24 The study was acquired using full field digital technology and interpreted from soft copy. 2D digital mammographic views, as well as 3D digital tomosynthesis were performed in the CC and MLO projections. This study was resulted using Computer-Aided Detection (CAD). CLINICAL: Screening mammogram, encounter for. No relevant medical history has been documented for this patient. History of breast cancer in Paternal Grandfather, Paternal Grandmother, Maternal Grandmother. COMPARISONS: 04/04/2023 Screening Mammogram Bilateral W Tiburcio 08/09/2022 Diagnostic Mammogram Left W Tiburcio 05/05/2022 Stereotactic Breast Biopsy Left 03/31/2022 Diagnostic Mammogram 2D Left 03/22/2022 Screening Mammogram Bilateral W Tiburcio BREAST TISSUE: There are scattered areas of fibroglandular density. FINDINGS: No suspicious masses, suspicious calcifications, or other suspicious findings are seen within either breast. There has been no suspicious change. Self Screening Mammogram IMG MAMMO PROCEDURES Fi nal Result * Correia Visual Field - OU - Both Eyes (04/11/2024 9:33 AM CRUSHER SUPERVISOR) Pattern Deviation OS 1.96 dB CONTINUUM Pattern Deviation OD 2.76 dB CONTINUUM Mean Deviation OS 1.75 dB CONTINUUM Mean Deviation OD 3.73 dB CONTINUUM Anatomical Region Laterality Modality Head Other Narrative 04/11/2024 9:38 AM CRUSHER SUPERVISOR Right Eye Fixation was good. Cooperation was borderline. Reliability was good. Progression has been stable. Foveal threshold was normal. Findings include normal observations. Mean Deviation was 3.73 dB. Pattern Deviation was 2.76 dB. Left Eye Fixation was good. Cooperation was borderline. Reliability was borderline. Foveal threshold was normal. Findings include normal observations. Mean Deviation was 1.75 dB. Pattern Deviation was 1.96 dB. Notes Right eye (OD): high fp%, full Left eye (OS): full Anny Motley OD OPHTH VISUAL FIELD Edited Result - Final * Dexa Axial Skeleton Bone Density 1 or 2 Site (05/16/2023 7:45 AM CRUSHER SUPERVISOR) Anatomical Region Laterality Modality Body N/A Mammography 05/16/2023 5:08 PM CRUSHER SUPERVISOR Narrative 05/16/2023 5:09 PM CRUSHER SUPERVISOR EXAM DESCRIPTION: DEXA AXIAL SKELETON BONE DENSITY 1 OR MORE SITES REASON FOR STUDY: 68 y/o year old F with given history of: age related screening Postmenopausal Shroudman/Model: [employer] Horizon A (S/N [id number]) CLINICAL INFORMATION: Current height: 60 inches Maximum height: 61 inches Weight: 177 pounds Risk factors: Postmenopausal, asthma or emphysema COMPARISON: 12/04/2017 FINDINGS: AP LUMBAR SPINE L1-L4: Total BMD is 0.771 g/cm2 T-score is -2.5 This is decreased in comparison to prior exam which is statistically significant. LEFT HIP: Total BMD is 0.782 g/cm2 T-score is -1.3 This is decrease in comparison to prior exam which is statistically significant. Femoral neck BMD is 0.567 g/cm2 T-score is -2.5 FRAX: FRAX not reported due to T-scores of hip, femoral neck and/or spine being at or below -2.5 (Osteoporosis). IMPRESSION: Osteoporosis. REFERENCE: Bone mineral density: Normal (T-score above or = -1.0) Low bone mass (T-score between -1.0 and -2.5) replaces the previously used term osteopenia Osteoporosis (T-score = or below -2.5) Please see below follow up recommendations. Medical evaluation for secondary causes of low bone mineral density may be appropriate. FRAX is a World Health Organization validated fracture risk assessment tool that calculates a person's 10 year probability of a major osteoporosis related fracture and hip fracture. According to the National Osteoporosis Foundation guidelines, postmenopausal women and men age 50 or older with low bone mass and a 10 year probability of a major osteoporosis related fracture = or greater than 20% or a 10 year probability of a hip fracture = or greater than 3% should be considered for pharmacological treatment for the prevention of osteoporosis. For further information, including treatment recommendations, please refer to the 2019 ISCD Official Positions (http://www.iscd.org) and the NOF's Clinician's Guide to Prevention and Treatment of Osteoporosis (http://www.nof.org/professionals/clinical-guidelines) THIS IS AN ELECTRONICALLY VERIFIED FINAL REPORT 05/16/2023 5:09 PM - Electronically signed by Garrett Hobbs M.D. MF: [id number] Report ID: [id number] Reading Location: [place] [address] Procedure Note Garrett Hobbs MD - 05/16/2023 EXAM DESCRIPTION: DEXA AXIAL SKELETON BONE DENSITY 1 OR MORE SITES REASON FOR STUDY: 68 y/o year old F with given history of: agerelated screening Postmenopausal Shroudman/Model: [employer] A (S/N [id number]) CLINICAL INFORMATION: Current height: 60 inches Maximum height: 61 inches Weight: 177 pounds Risk factors: Postmenopausal, asthma or emphysema COMPARISON: 12/04/2017 FINDINGS: AP LUMBAR SPINE L1-L4: Total BMD is 0.771 g/cm2 T-score is -2.5 This is decreased in comparison to prior exam which is statistically significant. LEFT HIP: Total BMD is 0.782 g/cm2 T-score is -1.3 This is decrease in comparison to prior exam which is statistically significant. Femoral neck BMD is 0.567 g/cm2 T-score is -2.5 FRAX: FRAX not reported due to T-scores of hip, femoral neck and/or spine beingat or below -2.5 (Osteoporosis). IMPRESSION: Osteoporosis. REFERENCE: Bone mineral density: Normal (T-score above or = -1.0) Low bone mass (T-score between -1.0 and -2.5) replaces thepreviously used term osteopenia Osteoporosis (T-score = or below -2.5) Please see below follow up recommendations. Medical evaluation forsecondary causes of low bone mineral density may be appropriate. FRAX is a World Health Organization validated fracture risk assessmenttool that calculates a person's 10 year probability of a major osteoporosisrelated fracture and hip fracture. According to the National OsteoporosisFoundation guidelines, postmenopausal women and men age 50 or older with low bonemass and a 10 year probability of a major osteoporosis related fracture = or greater than 20% or a 10 year probability of a hip fracture = or greaterthan 3% should be considered for pharmacological treatment for the preventionof osteoporosis. For further information, including treatment recommendations, please referto the 2019 ISCD Official Positions (http://www.iscd.org) and the NOF's Clinician's Guide to Prevention and Treatment of Osteoporosis (http://www.nof.org/professionals/clinical-guidelines) THIS IS AN ELECTRONICALLY VERIFIED FINAL REPORT 05/16/2023 5:09 PM - Electronically signed by Garrett Hobbs M.D. MF: [id number] Report ID: [id number] Reading Location: [place] [address] Aleksandra Brody PATIENT APPOINTMENT COORDINATOR IMG DXA PROCEDURES Final Res ult * HM COLONOSCOPY (03/09/2022) Scribed Colonoscopy Normal Historical Provider MD HEALTH MAINTENANCE Final Result * Hepatitis C antibody (01/13/2020 8:44 AM CDT) Hep C Ab NON-REACTI VE NON-REACT JAZLYN [facility] SIGNAL TO CUT-OFF 0.01 <1.00 [facility] Comment: HCV antibody was non-reactive. There is no laboratory evidence of HCV infection. In most cases, no further action is required. However, if recent HCV exposure is suspected, a test for HCV RNA (test code 60028) is suggested. For additional information please refer to http://education.[employer]faq/FHJ46h3 (This link is being provided for informational/ educational purposes only.) Blood specimen (specimen) 01/13/2020 8:44 AM CDT 01/13/2020 8:46 AM CDT Anjana Alexandra NP LAB MICROBIOLOGY - GENERAL OR DERABLES Final Result [facility] [id number] [address] [phone] from Last 3 Months or Most Recently Relevant to Health Maintenance Insurance [facility] [id number] [facility] [id number] MEDICARE Care Teams Pasteurizing Machine Operator Relationship Specialty Start Date End Date Magda Chicas MD PCP - General Internal Medicine 11/26/20
--- OUTSIDE RECORDS SUMMARY | 2024-05-12 08:51 | XMS_ITS | Referral Summary ---
Author Organization [facility] [employer] Address [address] [place] [address] Care Team Providers Care Saddle And Harness Maker Name Role Phone Dewey Vieyra MD Primary Care Provider [phone] Source Comments [facility] [employer],non-owned Affiliates and Associated Physician Practices is amultiple site organization consisting of ambulatory clinics and hospital sitesin [place], [place], [place] and [place]. This disclosure is being madepursuant to the Care Everywhere program and may not contain all information available regarding this patient. Last updated 17.[facility] [employer] Allergies Active Allergy Reactions Criticality Noted Date Comments Codeine 02/20/2016 Latex Rash Medium 01/01/2019 Avery rash Medications * Be aware that medications may not be up to date on this document. Alwaysverify current medications with the patient. Medication Sig Dispensed Refills Start Date End Date Status benzonatate (TESSALON) 200 MG capsule Take 1 Cap by mouth 3 times daily as needed for Cough 30 Cap 02/20/2016 Active Immunizations Name Administration Dates Next Due INFLUENZA VACCINE, QUADR. (F LUZONE; FLULAVAL; FLUARIX; AFLURIA QUADRIVALENT; 6MO+), 0.5 ML (IIV4) 01/01/2019 Social History Tobacco Use Types Packs/Day Years Used Date Smoking Tobacco: Never Assessed Sex and Gender Information Value Date Recorded Sex Assigned at Not on file Gender Identity Not on file Sexual Orientation Not on file Last Filed Vital Signs Vital Sign Reading Time Taken Comments Blood Pressure 112/64 02/20/2016 2:23 PM REAL ESTATE EXECUTIVE ASSISTANT Pulse 68 02/20/2016 2:23 PM REAL ESTATE EXECUTIVE ASSISTANT Temperature 36.8 C (98.2 F) 02/20/2016 2:23 PM REAL ESTATE EXECUTIVE ASSISTANT Respiratory Rate 18 02/20/2016 2:23 PM REAL ESTATE EXECUTIVE ASSISTANT Oxygen Saturation 99% 02/20/2016 2:23 PM REAL ESTATE EXECUTIVE ASSISTANT Inhaled Oxygen Concentration - - Weight 81.6 kg (180 lb) 02/20/2016 2:23 PM REAL ESTATE EXECUTIVE ASSISTANT Height 154.9 cm (5' 1 ) 02/20/2016 2:23 PM REAL ESTATE EXECUTIVE ASSISTANT Body Mass Index 34.01 02/20/2016 2:23 PM REAL ESTATE EXECUTIVE ASSISTANT Plan of Treatment Not on file Care Teams Saddle And Harness Maker Relationship Specialty Start Date End Date Dewey Vieyra MD [address] [facility] [place] [phone] PCP - General Internal Medicine 02/20/16
--- OUTSIDE RECORDS SUMMARY | 2024-05-12 08:51 | XMS_ITS | Patient Health Summary ---
Author Organization [facility] Address [address] [place] [address] Care Team Providers Care Toll Line Repairer Name Role Phone Dewey Vieyra MD Primary Care Provider [phone] Note from [facility],non-owned Affiliates and Associated Physician Practices is amultiple site organization consisting of ambulatory clinics and hospital sitesin [place], [place], [place] and [place]. This disclosure is being madepursuant to the Care Everywhere program and may not contain all information available regarding this patient. Last updated 17.[facility] Allergies * Codeine * Latex(Rash) -Medium Criticality Medications * Be aware that medications may not be up to date on this document. Alwaysverify current medications with the patient. * benzonatate (TESSALON) 200 MG capsule(Started 02/20/2016) Take 1 Cap by mouth 3 times daily as needed for Cough Immunizations * INFLUENZA VACCINE, QUADR. (FLUZONE; FLULAVAL; FLUARIX; AFLURIA QUADRIVALENT; 6MO+), 0.5 ML (IIV4)(Given 01/01/2019) Social History Tobacco Use Types Packs/Day Years Used Date Smoking Tobacco: Never Assessed Sex and Gender Information Value Date Recorded Sex Assigned at Not on file Gender Identity Not on file Sexual Orientation Not on file Last Filed Vital Signs Vital Sign Reading Time Taken Comments Blood Pressure 112/64 02/20/2016 2:23 PM CLEAT FEEDER Pulse 68 02/20/2016 2:23 PM CLEAT FEEDER Temperature 36.8 C (98.2 F) 02/20/2016 2:23 PM CLEAT FEEDER Respiratory Rate 18 02/20/2016 2:23 PM CLEAT FEEDER Oxygen Saturation 99% 02/20/2016 2:23 PM CLEAT FEEDER Inhaled Oxygen Concentration - - Weight 81.6 kg (180 lb) 02/20/2016 2:23 PM CLEAT FEEDER Height 154.9 cm (5' 1 ) 02/20/2016 2:23 PM CLEAT FEEDER Body Mass Index 34.01 02/20/2016 2:23 PM CLEAT FEEDER Care Teams Toll Line Repairer Relationship Specialty Start Date End Date Dewey Vieyra MD [facility] [address] [place] [phone] PCP - General Internal Medicine 02/20/16
--- OUTSIDE RECORDS SUMMARY | 2024-05-12 08:51 | XMS_ITS | Encounter Summary ---
Author Organization [facility] Care Team Providers Care School Psychology Specialist Name Role Phone Magda Chicas MD Primary Care Provider Encounter Details Date Type Department Care Team (Latest Contact Info) Description 06/05/2017 Orders Only [facility] CLINCONV ProviderCésar MD [address] [place] [id number] Social History Tobacco Use Types Packs/Day Years Used Date Smoking Tobacco: Never Comments Unknown Sex and Gender Information Value Date Recorded Sex Assigned at Not on file Legal Sex Female 8:40 AM COOLER ROOM WORKER Gender Identity Female 11/20/2020 6:50 PM CDT Sexual Orientation Straight 11/20/2020 6: 50 PM CDT documented as of this encounter Plan of Treatment Not on file documented as of this encounter Procedures Procedure Name Priority Date/Time Associated Diagnosis Comments COLONOSCOPY - SCAN 06/05/2017 12 :00 AM CDT documented in this encounter Results * COLONOSCOPY - SCAN (06/05/2017 12:00 AM CDT) Narrative 06/05/2017 12:00 AM CDT Ordered by an unspecified provider. Historical Provider Final Res ult documented in this encounter Visit Diagnoses Not on filedocumented in this encounter Care Teams School Psychology Specialist Relationship Specialty Start Date End Date Magda Chicas MD PCP - General Internal Medicine 11/26/20 documented as of this encounter
--- OUTSIDE RECORDS SUMMARY | 2024-05-12 08:51 | XMS_ITS | Encounter Summary ---
Author Organization [facility] Facility Care Team Providers Care Ammonia Solution Preparer Name Role Phone Magda Chicas MD Primary Care Provider Encounter Details Date Type Department Care Team (Latest Contact Info) Description 07/25/2017 Orders Only [facility]G CLINCONV ProviderCésar MD [address] [place] [id number] Social History Tobacco Use Types Packs/Day Years Used Date Smoking Tobacco: Never Comments Unknown Sex and Gender Information Value Date Recorded Sex Assigned at Not on file Legal Sex Female 8:40 AM SLPS Gender Identity Female 11/20/2020 6:50 PM CDT Sexual Orientation Straight 11/20/2020 6: 50 PM CDT documented as of this encounter Plan of Treatment Not on file documented as of this encounter Procedures Procedure Name Priority Date/Time Associated Diagnosis Comments COLONOSCOPY - SCAN 07/25/2017 12 :00 AM CDT documented in this encounter Results * COLONOSCOPY - SCAN (07/25/2017 12:00 AM CDT) Narrative 07/25/2017 12:00 AM CDT Ordered by an unspecified provider. Historical Provider Final Res ult documented in this encounter Visit Diagnoses Not on filedocumented in this encounter Care Teams Ammonia Solution Preparer Relationship Specialty Start Date End Date Magda Chicas MD PCP - General Internal Medicine 11/26/20 documented as of this encounter
--- OUTSIDE RECORDS SUMMARY | 2024-05-12 08:51 | XMS_ITS | Referral Summary ---
Author Organization [facility] Address [address] [place] [address] Care Team Providers Care Material Expeditor Name Role Phone Magda Chicas MD Primary Care Provider Encounters Date Type Department Care Team Description 04/22/2024 1:43 PM MANAGER ECONOMIC - 04/22/2024 11:59 PM MANAGER ECONOMIC Hospital Encounter [facility] Breast [facility] [place] [phone] Screening mammogram, encounter for Discharge Disposition: Discharge to home or self care 04/11/2024 9:00 AM MANAGER ECONOMIC Imaging Exam [facility] Ophthalmology [facility] [address] [place] [phone] Suspected glaucoma of both eyes 04/11/2024 9:30 AM MANAGER ECONOMIC Office Visit [facility] Ophthalmology [facility] 6th Floor, [address] [facility] [place] [address] Anny Motley, OD Suspected glaucoma of both eyes (Primary Dx); Age-related nuclear cataract of both eyes from Last 3 Months Allergies Active Allergy Reactions Criticality Noted Date Comments Amoxicillin-Pot Clavulanate Diarrhea,Vomiting High 06/03/2019 Cat Dander Eye irritation,Sneezing Low 05/20/2022 Codeine Stomach upset,Vomiting Low 02/20/2016 Latex Rash Medium 01/01/2019 [place] rash Linaclotide Diarrhea Medium 06/03/2019 Pollen Extracts [...] 11/23/2021 Assessment & Plan (04/16/2023 5:01 PM MANAGER ECONOMIC): This seems to be under pretty good control. No need for further intervention. Taking medication as needed. Assessment & Plan (02/07/2023 7:59 PM MANAGER ECONOMIC): She seems to do quite a bit better on this medication. She does have occasional breakthrough symptoms and I felt that she could try taking the cfll-joy-sbrmymw pantoprazole when that happens. Otherwise no need for further intervention. Refills being given. Assessment & Plan (11/23/2021 9:18 AM CDT): I think this is likely with causing the cough. Increasing her PPI to twice a day. History of eye trauma 06/29/2021 Overview (06/29/2021): Hx R orbital floor blowout fx 04/2015, observed: --> [facility] [place] [place]. --scanned in 12/2019 Assessment & Plan (07/11/2023 12:57 PM CDT): Hx R orbital floor blowout fx 04/2015, observed: --> Re[facility] facial [facility] from [facility] [place] [place]. --scanned in 12/2019 No residual visual [...] observed: --> Received facial [facility] report from [facility] [place] [place]. --scanned in 12/2019 No residual visual issues. Doesn't get diplopia much. Sometimes gets and then blinks to resolve Assessment & Plan (06/29/2021 10:12 AM CDT): Hx R orbital floor blowout fx 04/2015, observed: --> Received facial [facility] report from [facility] [place] [place]. --scanned in 12/2019 May be related [...] OCT/DFE. Assessment & Plan (04/11/2024 11:26 AM MANAGER ECONOMIC): Full visual field (VF), IOPs normal range [...] (05/19/2022): Added automatically from request for surgery [id number] Cough 11/23/2021 01/11/2022 Assessment & Plan (11/23/2021 [...] 05/02/2024 Assessment & Plan (04/11/2024 10:02 AM MANAGER ECONOMIC): Mild cataract OU. Vision is stable. Patient [...] 10/12/2023 Assessment & Plan (04/16/2023 5:02 PM MANAGER ECONOMIC): I do not find any evidence of [...] Slow transit constipation 12/03/2018 Trichiasis 07/13/2015 11/18/2020 Immunizations Immunization Administration Dates Next Due COVID-19 mRNA ([employer]) 0.3 m L (30 mcg) vaccine (12 [...] vative Free, Intramuscular 01/15/2018,01/30/2016,02/01/2015 Influenza, Unspecified 01/03/2022,01/04/2021 yoone SARS-CoV-2 Monovalent Vaccination (12+ Yrs) BUENROSTRO-READY TO USE 08/30/2021 Pfizer SARS-CoV-2 Monovalent Vaccination (12+ Yrs) PURPLE 01/03/2022,12/28/2020,06/10/2020,05/20 yoone Sars-Cov-2 Bivalent V accination (12+ YRS) 12/27/2021 Td, adsorbed 08/08/2000 Tdap 11/26/2020 ZOSTER LIVE 03/27/2016 ZOSTER Recombinant 05/10/2022,01/18/2022 Social History Tobacco Use Types Packs/Day Years [...] on file Legal Sex Female 8:40 AM MANAGER ECONOMIC Gender Identity Female 11/20/2020 6:50 PM CDT Sexual Orientation Straight 11/20/2020 6: 50 PM CDT 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 Not on file Not on fi le Last Filed Vital Signs Vital Sign Reading Time Taken Comments Blood Pressure 124/70 01/03/2024 10:07 AM CDT Pulse 81 10/23/2023 10:33 AM CDT Temperature 36.5 C (97.7 F) 10/23/2023 10:33 AM CDT Respiratory Rate 18 04/12/2023 3:30 PM MANAGER ECONOMIC Oxygen Saturation 96% 10/23/2023 10:33 AM CDT Inhaled Oxygen Concentration - - Weight 84.4 kg (186 lb) 01/03/2024 10:07 AM CDT Height 149.9 cm (4' 11 ) 01/03/2024 10:07 AM CDT Body Mass Index 37.57 01/03/2024 10:07 AM CDT Plan of Treatment Not on file Medical Devices Implanted Type Area Knitting Supervisor Device Identifier Shelf Expiration Date Model / Serial / Lot [employer] Tenodesis 6.25mm 15mm Acl Screw Interference Biocomposite Sterile [id number] - S0 - [id number] Implanted:Qty: 1 on 05/25/2022 by Armen Ortega MD at [facility] Screw Left: Calcaneus [employer] [id number] 01/24/2026 [id number] / 0 / [id number] [employer] Corkscrew Ii Fiberwire 5.5mm 16.3mm 2 2 Full Thread [place] Suture [id number] - [id number] Implanted:Qty: 1 on 05/25/2022 by Armen Ortega MD at [facility] Left: Calcaneus [employer] [id number] 04/26/2025 [id number] / / [id number] [employer] Corkscrew Ii Fiberwire 5.5mm 16.3mm 2 2 Full Thread [place] Suture [id number] - [id number] Implanted:Qty: 1 on 05/25/2022 by Armen Ortega MD at [facility] Left: Calcaneus [employer] [id number] 04/26/2025 [id number] / / [id number] Procedures Procedure Name Priority Date/Time Associated Diagnosis Comments SCREENING MAMMOGRAM BILATERAL W TIBURCIO Schedule Routine, Read Routine (OP Routine) 04/22/2024 2:06 PM MANAGER ECONOMIC Screening mammogram, encounter for CORREIA VISUAL FIELD - OU - BOTH EYES Routine 04/11/2024 9:33 AM MANAGER ECONOMIC Suspected glaucoma of both eyes DEXA AXIAL SKELETON BONE DENSITY 1 OR MORE SITES Schedule Routine, Read Routine (OP Routine) 05/16/2023 7:45 AM MANAGER ECONOMIC Abnormal bone density screening HM COLONOSCOPY Routine 03/09/2022 HEPATITIS C ANTIBODY Routine 01/13/2020 8:44 AM CDT Encounter for hepatitis C screening test for low risk patient from Last 3 Months or Most Recently Relevant to Health Maintenance Results * Screening Mammogram Bilateral W Tiburcio (04/22/2024 2:06 PM MANAGER ECONOMIC) Anatomical Region Laterality Modality Breast Bilateral Mammography Impressions 04/22/2024 3:36 PM MANAGER ECONOMIC BI-RADS ATLAS category (overall): 1 - Negative There is no mammographic evidence of malignancy. A 1 year screening mammogram is recommended. The patient has been or will be contacted. We recommend annual screening mammography for women at average risk of breast cancer beginning at age 40, based on guidelines of the [employer] [employer] (ACR Practice Parameter for the Performance of Screening and Diagnostic Mammography) and [place]. For women with and elevated risk of breast cancer, please refer to the ACR Practice Parameter for specific screening recommendations. The patient will be entered into a reminder system with a target due date of 1 year for her next screening exam. Narrative 04/22/2024 3:36 PM MANAGER ECONOMIC Screening Mammogram Bilateral W Tiburcio: 04/22/24 The [...] breast. There has been no suspicious change. us Self Screening Mammogram IMG MAMMO PROCEDURES Fi nal Result * Correia Visual Field - OU - Both Eyes (04/11/2024 9:33 AM MANAGER ECONOMIC) Pattern Deviation OS 1.96 dB CONTINUUM Pattern Deviation OD 2.76 dB CONTINUUM Mean Deviation OS 1.75 dB CONTINUUM Mean Deviation OD 3.73 dB CONTINUUM Anatomical Region Laterality Modality Head Other Narrative 04/11/2024 9:38 AM MANAGER ECONOMIC Right Eye Fixation was good. 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 MF: NADINE Report ID: [id number] Reading Location: [place] [address] Procedure Note Garrett Hobbs MD - 05/16/2023 EXAM DESCRIPTION: DEXA AXIAL SKELETON BONE DENSITY 1 OR MORE SITES REASON FOR STUDY: 68 y/o year old F with given history of: agerelated screening Postmenopausal Knitting Supervisor/Model: [employer] A (S/N [id number]) CLINICAL INFORMATION: Current height: 60 inches Maximum [...] Garrett Hobbs M.D. MF: NADINE Report ID: [id number] Reading Location: [place] [address] Aleksandra Brody OFFENSIVE COORDINATOR IMG DXA PROCEDURES Final Res ult * COLONOSCOPY (03/09/2022) [facility] Scribed Colonoscopy Normal Historical Provider HEALTH MAINTENANCE Final Result * Hepatitis C antibody (01/13/2020 8:44 AM CDT) [facility] Hep C Ab NON-REACTI VE NON-REACT JAZLYN [facility] SIGNAL TO CUT-OFF 0.01 <1.00 [facility] Comment: HCV antibody was non-reactive. There is no laboratory evidence of HCV infection. In most cases, no further action is required. However, if recent HCV exposure is suspected, a test for HCV RNA (test code 58592) is suggested. For additional information please refer to http://education.[employer]/faq/KCC51f3 (This link is being provided for informational/ educational purposes only.) Blood specimen (specimen) 01/13/2020 8:44 AM CDT 01/13/2020 8:46 AM CDT Anjana Alexandra OFFENSIVE COORDINATOR LAB MICROBIOLOGY - GENERAL OR DERABLES Final Result [facility] [id number] [address] [phone] from Last 3 Months or Most Recently Relevant to Health Maintenance Insurance [facility] [id number] [address] [facility] [id number] [facility] [id number] MEDICARE Care Teams Material Expeditor Relationship Specialty Start Date End Date Magda Chicas MD PCP - General Internal Medicine 11/26/20
--- OUTSIDE RECORDS SUMMARY | 2024-05-12 08:51 | XMS_ITS | Continuity of Care Document ---
Author Organization [id number] [place] Address [address] [facility] [address] [place] [address] Phone Care Team Providers Care Drive [employer] Post Repairer Name Role Phone Jayson PT, DPT, Ben Unavailable Unavai lable Procedures Procedure Date PT Evaluation Moderate Complexity Therapeutic Exercise Manual Therapy Therapeutic Exercise Therapeutic Activities Neuromuscular Re-Ed Therapeutic Exercise Therapeutic Activities Neuromuscular Re-Ed Therapeutic Exercise Therapeutic Activities Neuromuscular Re-Ed Therapeutic Exercise Neuromuscular Re-Ed Manual Therapy Hot or Cold Pack Ultrasound Therapeutic Exercise Neuromuscular Re-Ed Manual Therapy Hot or Cold Pack Ultrasound PT Evaluation Moderate Complexity Therapeutic Exercise Manual Therapy Ultrasound THERAPEUTIC EXERCISES NEUROMUSCULAR RE-ED MANUAL THERAPY FUNC ACTIVITY HOT/COLD PACK THERAPEUTIC EXERCISES NEUROMUSCULAR RE-ED MANUAL THERAPY FUNC ACTIVITY HOT/COLD PACK THERAPEUTIC EXERCISES NEUROMUSCULAR RE-ED MANUAL THERAPY FUNC ACTIVITY HOT/COLD PACK THERAPEUTIC EXERCISES NEUROMUSCULAR RE-ED MANUAL THERAPY FUNC ACTIVITY HOT/COLD PACK THERAPEUTIC EXERCISES NEUROMUSCULAR RE-ED MANUAL THERAPY FUNC ACTIVITY HOT/COLD PACK THERAPEUTIC EXERCISES NEUROMUSCULAR RE-ED MANUAL THERAPY FUNC ACTIVITY HOT/COLD PACK THERAPEUTIC EXERCISES NEUROMUSCULAR RE-ED MANUAL THERAPY FUNC ACTIVITY HOT/COLD PACK THERAPEUTIC EXERCISES NEUROMUSCULAR RE-ED MANUAL THERAPY FUNC ACTIVITY HOT/COLD PACK THERAPEUTIC EXERCISES NEUROMUSCULAR RE-ED MANUAL THERAPY FUNC ACTIVITY HOT/COLD PACK THERAPEUTIC EXERCISES NEUROMUSCULAR RE-ED MANUAL THERAPY FUNC ACTIVITY HOT/COLD PACK THERAPEUTIC EXERCISES NEUROMUSCULAR RE-ED MANUAL THERAPY FUNC ACTIVITY HOT/COLD PACK THERAPEUTIC EXERCISES NEUROMUSCULAR RE-ED MANUAL THERAPY FUNC ACTIVITY HOT/COLD PACK THERAPEUTIC EXERCISES NEUROMUSCULAR RE-ED MANUAL THERAPY FUNC ACTIVITY HOT/COLD PACK THERAPEUTIC EXERCISES NEUROMUSCULAR RE-ED MANUAL THERAPY FUNC ACTIVITY HOT/COLD PACK THERAPEUTIC EXERCISES NEUROMUSCULAR RE-ED MANUAL THERAPY FUNC ACTIVITY HOT/COLD PACK THERAPEUTIC EXERCISES NEUROMUSCULAR RE-ED MANUAL THERAPY FUNC ACTIVITY HOT/COLD PACK THERAPEUTIC EXERCISES NEUROMUSCULAR RE-ED MANUAL THERAPY FUNC ACTIVITY HOT/COLD PACK THERAPEUTIC EXERCISES NEUROMUSCULAR RE-ED MANUAL THERAPY FUNC ACTIVITY HOT/COLD PACK THERAPEUTIC EXERCISES NEUROMUSCULAR RE-ED MANUAL THERAPY FUNC ACTIVITY HOT/COLD PACK THERAPEUTIC EXERCISES NEUROMUSCULAR RE-ED MANUAL THERAPY FUNC ACTIVITY HOT/COLD PACK THERAPEUTIC EXERCISES NEUROMUSCULAR RE-ED MANUAL THERAPY FUNC ACTIVITY HOT/COLD PACK THERAPEUTIC EXERCISES NEUROMUSCULAR RE-ED MANUAL THERAPY FUNC ACTIVITY HOT/COLD PACK THERAPEUTIC EXERCISES NEUROMUSCULAR RE-ED MANUAL THERAPY FUNC ACTIVITY HOT/COLD PACK THERAPEUTIC EXERCISES NEUROMUSCULAR RE-ED MANUAL THERAPY FUNC ACTIVITY HOT/COLD PACK VASOPNEUMATIC DEVICE ATTEND THERAPEUTIC EXERCISES NEUROMUSCULAR RE-ED MANUAL THERAPY FUNC ACTIVITY HOT/COLD PACK VASOPNEUMATIC DEVICE ATTEND THERAPEUTIC EXERCISES NEUROMUSCULAR RE-ED MANUAL THERAPY FUNC ACTIVITY HOT/COLD PACK VASOPNEUMATIC DEVICE ATTEND THERAPEUTIC EXERCISES NEUROMUSCULAR RE-ED MANUAL THERAPY FUNC ACTIVITY HOT/COLD PACK THERAPEUTIC EXERCISES NEUROMUSCULAR RE-ED MANUAL THERAPY FUNC ACTIVITY HOT/COLD PACK THERAPEUTIC EXERCISES NEUROMUSCULAR RE-ED MANUAL THERAPY FUNC ACTIVITY HOT/COLD PACK THERAPEUTIC EXERCISES NEUROMUSCULAR RE-ED MANUAL THERAPY FUNC ACTIVITY HOT/COLD PACK THERAPEUTIC EXERCISES NEUROMUSCULAR RE-ED MANUAL THERAPY FUNC ACTIVITY HOT/COLD PACK THERAPEUTIC EXERCISES NEUROMUSCULAR RE-ED MANUAL THERAPY FUNC ACTIVITY HOT/COLD PACK THERAPEUTIC EXERCISES NEUROMUSCULAR RE-ED MANUAL THERAPY FUNC ACTIVITY HOT/COLD PACK THERAPEUTIC EXERCISES NEUROMUSCULAR RE-ED MANUAL THERAPY FUNC ACTIVITY HOT/COLD PACK THERAPEUTIC EXERCISES NEUROMUSCULAR RE-ED MANUAL THERAPY FUNC ACTIVITY HOT/COLD PACK THERAPEUTIC EXERCISES NEUROMUSCULAR RE-ED MANUAL THERAPY FUNC ACTIVITY HOT/COLD PACK THERAPEUTIC EXERCISES NEUROMUSCULAR RE-ED MANUAL THERAPY FUNC ACTIVITY HOT/COLD PACK THERAPEUTIC EXERCISES NEUROMUSCULAR RE-ED MANUAL THERAPY FUNC ACTIVITY HOT/COLD PACK THERAPEUTIC EXERCISES NEUROMUSCULAR RE-ED MANUAL THERAPY FUNC ACTIVITY HOT/COLD PACK OT EVALUATION THERAPEUTIC EXERCISES MANUAL THERAPY HOT/COLD PACK Advance Directives Directive Yes / No Effective Date File Name No Information Encounters Encounter Description Practice Location Reason(s) For Visit Diagnoses Date Provider Providers Copied on Encounter [facility] [address] [place] [address], [place], [place], [address], tel:[phone] [place] Pain in left ankle and joints of left footPain in left footStiffness of left ankle, not elsewhere classifiedOth er specified disorders of muscleMuscle weakness (generalized) 7-201 9 Jayson Contreras. . Referring Provider: Anjana Alexandra, [address] [place] [address], [place], [address]. tel:[phone] [address], [place], [place], [address], tel:[phone] [place] No Information Sep-2 7 Muehl Doyle. [address] [place] [address], [facility] [address], [place], [facility], . tel:[phone] Referring Provider: Prema Rios, [address], [place], [address]. tel:[phone] [address], [place], [place], [address], tel:[phone] [place] No Information Sep-2 7 Muehl Doyle. [address] [facility], [address], [place], [facility], . tel:[phone] Referring Provider: Prema Rios, [address], [place], [address]. tel:[phone], [id number], [place] tel:[phone] [place] No Information Sep-2 2- 7 Muehl Doyle. [address] [facility], [address], [place], [facility], [place]. tel:[phone] Referring Provider: Prema Rios, [address] [facility] [address], [place], [address]. tel:[phone] [facility] [address], [place], [place], [address], [place] tel:[phone] [place] No Information 7 Jared Earl. . Referring Provider: Prema Rios, [address], [place], [address]. tel:[phone] [facility] [address], [place], [place], [address], [place] tel:[phone] [place] No Information Nov- 7 Chong Doyle. [address] [place] [address], [address], [place], [facility], . tel:[phone] Referring Provider: Prema Rios, [address] [facility] [address], [place], [address]. tel:[phone] [facility], [place], [place], [address], [place] tel:[phone] [place] Pain in left legOth disrd of synovium and tendon, unspecified siteAbnormal postureOther bursitis of hip, left hipOth enthesopathie s of left lower limb, excluding foot Sep- 7 Jared Earl. . Referring Provider: Prmea Rios, [address], [place], [address]. tel:[phone] [facility], [place], [place], [address], [place] tel:[phone] [place] No Information 6 David Portillo. [address] [place] [address], [address], [place], [facility], [place]. tel:[phone] Referring Provider: Romy Borden, [address] [facility] [address], [place], [address]. tel:[phone], [place], [place], [address], [place] tel:[phone] [place] No Information Sep-2 2-201 6 Hernandez Lindsey. [address] [place] [address], [address], [facility], . tel:[phone] Referring Provider: Romy Borden, [address], [place], [address]. tel:[phone], [place], [place], [address], tel:[phone] [place] No Information 5-201 6 Hernandez Lindsey. [address] [place] [address], [address], [facility], . tel:[phone] Referring Provider: Romy Borden, [address], [place], [address]. tel:[phone], [place], [place], [address], [place] tel:[phone] [place] No Information Sep-0 6-201 6 Hernandez Lindsey. [address] [place] [address], [address], [facility], . tel:[phone] Referring Provider: Romy Borden, [address], [place], [address]. tel:[phone], [place], [place], [address], [place] tel:[phone] [place] No Information 0 1-201 6 Hernandez Lindsey. [address] [place] [address], [address], [facility], . tel:[phone] Referring Provider: Romy Borden [address], [place], [address]. tel:[phone], [place], [place], [address], tel:[phone] [place] No Information Agustin-2 7-201 6 Hernandez Lindsey. [address] [place] [address], [address], [facility], . tel:[phone] Referring Provider: Romy Borden, [address], [place], [address]. tel:[phone], [place], [place], [address], tel:[phone] [place] No Information Agustin-2 4-201 6 Hernandez Lindsey. [address] [place] [address], [address], [facility], . tel:[phone] Referring Provider: Romy Borden [address], [place], [address]. tel:[phone] [address], [place], [place], [address], tel:[phone] [place] No Information Agustin-2 0-201 6 Hernandez Lindsey. [address] [place] [address], [address], [facility], . tel:[phone] Referring Provider: Romy Borden, [address], [place], [address]. tel:[phone], [place], [place], [address], tel:[phone] [place] No Information Agustin-1 7-201 6 Hernandez Lindsey. [address] [place] [address], [address], [facility], . tel:[phone] Referring Provider: Romy Borden [address], [place], [address]. tel:[phone], [place], [place], [address], tel:[phone] [place] No Information Agustin-1 3-201 6 Hernandez Lindsey. [address] [place] [address], [address], [place], [address], . tel:[phone] Referring Provider: Romy Borden [address], [place], [address]. tel:[phone], [place], [place], [address], [place] tel:[phone] [place] No Information Agustin-1 0-201 6 Hernandez Lindsey. [address] [place] [address], [address], [place], [facility], [place]. tel:[phone] Referring Provider: Romy Borden [address], [place], [address]. tel:[phone], [place], [address], [place] tel:[phone] [place] No Information Agustin-0 6-201 6 Hernandez Lindsey. [address] [place] [address], [address], [facility], [place]. tel:[phone] Referring Provider: Romy Borden [address], [place], [address]. tel:[phone], [place], [place], [address], [place] tel:[phone] [place] No Information Agustin-0 3-201 6 Hernandez Lindsey. [address] [place] [address], [address], [place], [address], [place]. tel:[phone] Referring Provider: Romy Borden [address], [place], [address]. tel:[phone], [place], [address], [place] tel:[phone] [place] No Information Agustin-0 1-201 6 Hernandez Lindsey. [address] [place] [address], [address], [facility], . tel:[phone] Referring Provider: Romy Borden [address], [place], [address]. tel:[phone] [facility], [address] [place], [place] [address], [place], [place], [address], tel:[phone] [place] No Information May-2 7-201 6 Bagautdinova Gemma. [address] [place] [address], [address], [place], [facility], . tel:[phone] Referring Provider: Romy Borden [address], [place], [address]. tel:[phone] [address], [place], [place], [address], tel:[phone] [place] No Information May-2 3-201 6 Bagautdinova Gemma. [address] [place] [address], [address], [facility], . tel:[phone] Referring Provider: Romy Borden [address], [place], [address]. tel:[phone] [address], [place], [place], [address], tel:[phone] [place] No Information May-2 0-201 6 Hernandez Lindsey. [address] [place] [address], [address], [place], [facility], . tel:[phone] Referring Provider: Romy Borden [address], [place], [address]. tel:[phone] [address], [place], [place], [address], tel:[phone] [place] No Information May-1 6-201 6 Hernandez Lindsey. [address] [place] [address], [address], [facility], . tel:[phone] Referring Provider: Romy Borden, [address], [place], [address]. tel:[phone], [place], [place], [address], tel:[phone] [place] No Information May-1 3-201 6 Hernandez Lindsey. [address] [place] [address], [address], [facility], . tel:[phone] Referring Provider: Romy Borden, [address], [place], [address]. tel:[phone] [address], [place], [address], tel:[phone] [place] No Information May-1 1-201 6 Hernandez Lindsey. [address] [place] [address], [address], [facility], . tel:[phone] Referring Provider: Romy Borden [address], [place], [address]. tel:[phone] [address] [place] [address], [address], tel:[phone] [place] No Information May-0 9-201 6 Hernandez Lindsey. [address] [place] [address], [address], [facility], . tel:[phone] Referring Provider: Romy Borden [address], [place], [address]. tel:[phone] [address], [place], [address], tel:[phone] [place] No Information May-0 6-201 6 Hernandez Lindsey. [address] [place] [address], [address], [place], [facility], . tel:[phone] Referring Provider: Romy Borden [address], [place], [address]. tel:[phone], [place], [place], [address], tel:[phone] [place] No Information May-0 4-201 6 Hernandez Lindsey. [address] [place] [address], [address], [facility], . tel:[phone] Referring Provider: Romy Borden, [address], [place], [address]. tel:[phone] [address], [place], [place], [address], tel:[phone] [place] No Information May-0 2-201 6 Hernandez Lindsey. [address] [place] [address], [address], [facility], . tel:[phone] Referring Provider: Romy Borden, [address], [place], [address]. tel:[phone] [address], [place], [place], [address], tel:[phone] [place] No Information Apr-2 9-201 6 Hernandez Lindsey. [address] [place] [address], [address], [facility], . tel:[phone] Referring Provider: Romy Borden, [address], [place], [address]. tel:[phone], [place], [place], [address], [place] tel:[phone] [place] No Information Apr-2 7-201 6 Hernandez Lindsey. [address] [place] [address], [address], [facility], . tel:[phone] Referring Provider: Romy Borden [address], [place], [address]. tel:[phone] [address], [place], [place], [address], tel:[phone] [place] No Information Apr-2 5-201 6 Maricel Menendez. [address] [place] [address], [address], [place], [facility], . tel:[phone] Referring Provider: Romy Borden, [address], [place], [address]. tel:[phone] [address], [place], [place], [address], tel:[phone] [place] No Information Apr-2 0-201 6 David Portillo. [address] [place] [address], [address], [place], [facility], . tel:[phone] Referring Provider: Romy Borden, [address], [place], [address]. tel:[phone] [address], [place], [place], [address], tel:[phone] [place] No Information Jun- 8-201 6 David Portillo. [address] [place] [address], [address], [place], [facility], . tel:[phone] Referring Provider: Romy Borden, [address], [place], [address]. tel:[phone] [address], [place], [place], [address], tel:[phone] [place] No Information Jun- 5-201 6 David Portillo. [address] [place] [address], [address], [place], [facility], . tel:[phone] Referring Provider: Romy Borden, [address], [place], [address]. tel:[phone] [facility] [address] [facility] [address] [address], [place], [place], [address], [place] tel:[phone] [place] No Information Apr-1 3-201 6 Hernandez Lindsey. [address] [place] [address], [address], [place], [facility], . tel:[phone] Referring Provider: Romy Borden [address], [place], [address]. tel:[phone] [address], [place], [address], tel:[phone] [place] No Information Apr-0 6-201 6 Hernandez Lindsey. [address] [place] [address], [address], [place], [facility], [place]. tel:[phone] Referring Provider: Romy Borden [address], [place], [address]. tel:[phone] [address] [facility], [place], [address], tel:[phone] [place] No Information Apr-0 4-201 6 Hernandez Lindsey. [address] [place] [address], [address], [place], [facility], [place]. tel:[phone] Referring Provider: Romy Borden [address], [place], [address]. tel:[phone] [address], [place], [place], [address], tel:[phone] [place] No Information Apr-0 1-201 6 Hernandez Lindsey. [address] [place] [address], [address], [place], [address], [place]. tel:[phone] Referring Provider: Romy Borden [address], [place], [address]. tel:[phone], [place], [place], [address], tel:[phone] [place] No Information Mar-3 0-201 6 Hernandez Lindsey. [address] [place] [address], [address], [place], [facility], . tel:[phone] Referring Provider: Romy Borden [address], [place], [address]. tel:[phone], [place], [place], [address], tel:[phone] [place] No Information Mar-2 8-201 6 Hernandez Lindsey. [address] [place] [address], [address], [place], [facility], [place]. tel:[phone] Referring Provider: Romy Borden [address], [place], [address]. tel:[phone] [address], [place], [place], [address], [place] tel:[phone] [place] No Information Mar-2 5-201 6 Hernandez Lindsey. [address] [place] [address], [address], [facility], [place]. tel:[phone] Referring Provider: Romy Borden [address], [place], [address]. tel:[phone], [place], [place], [address], [place] tel:[phone] [place] No Information Mar-2 3-201 6 Hernandez Lindsey. [address] [place] [address], [address], [place], [facility], [place]. tel:[phone] Referring Provider: Romy Borden [address], [place], [address]. tel:[phone] [address], [place], [place], [address], tel:[phone] [place] No Information Mar-2 1-201 6 Hernandez Lindsey. [address] [place] [address], [address], [facility], [place]. tel:[phone] Referring Provider: Romy Borden, [address], [place], [address]. tel:[phone] [facility] [address], [place], [place], [address], [place] tel:[phone] [place] Stiffness of unspecified wrist, not elsewhere classifiedPai n in left wristFx unsp carpal bone, left wrist, subs for fx w routn heal 8201 6 Maricel Menendez. [address] [facility], [address], [place], [address], [place]. tel:[phone] Referring Provider: Romy Borden, [address], [place], [address]. tel:[phone] Family History Family Member Type Diagnosis Age At Onset No Information Payers Payer name Insurance type Covered democrat ID Authoriza tion(s) No Information Social History Type Description Quantity Date Captured Comments Sex Female Smoking Status No Information Chief Complaint And Reason For Visit No Information Reason For Referral Reason For Referral No Information History Of Present Illness Encounter Date Complaint History Of Prese nt Illness No Information Functional Status Date Functional Assessmen t No Information Instructions Date Instruction Additional Infor mation No Information Assessments Type Assessment Date No Information Patient Care Teams Name Effective Dates (start - stop) Status Members No Information
--- OUTSIDE RECORDS SUMMARY | 2024-05-12 08:51 | XMS_ITS | Clinical Summary ---
Author Organization [facility] [employer] Address [address] [facility] [address] Care Team Providers Care Banbury Operator Name Role Phone Dewey Vieyra MD Primary Care Provider [phone] Source Comments [facility] [employer],non-owned Affiliates and Associated Physician Practices is amultiple site organization consisting of ambulatory clinics and hospital sitesin [place], [place], [place] and [place]. This disclosure is being madepursuant to the Care Everywhere program and may not contain all information available regarding this patient. Last updated 17.[facility] [employer] Allergies Active Allergy Reactions Criticality Noted Date Comments Codeine 02/20/2016 Latex Rash Medium 01/01/2019 Chestnut rash Medications * Be aware that medications [...] Comments Blood Pressure 112/64 02/20/2016 2:23 PM COMMUNICATIONS PLANNER Pulse 68 02/20/2016 2:23 PM COMMUNICATIONS PLANNER Temperature 36.8 C (98.2 F) 02/20/2016 2:23 PM COMMUNICATIONS PLANNER Respiratory Rate 18 02/20/2016 2:23 PM COMMUNICATIONS PLANNER Oxygen Saturation 99% 02/20/2016 2:23 PM COMMUNICATIONS PLANNER Inhaled Oxygen Concentration - - Weight 81.6 kg (180 lb) 02/20/2016 2:23 PM COMMUNICATIONS PLANNER Height 154.9 cm (5' 1 ) 02/20/2016 2:23 PM COMMUNICATIONS PLANNER Body Mass Index 34.01 02/20/2016 2:23 PM COMMUNICATIONS PLANNER Plan of Treatment Health Maintenance Due Date Last Done Comments COLOGUARD (AGES 45-75) - COLON CA SCREENING 1957 COLON MONITORING 1957 COLONOSCOPY - COLON CA SCREENING 1957 CT COLONOGRAPHY - COLON CA SCREENING 1957 Colorectal Cancer Screening 1957 FIT - COLON CA SCREENING 1957 FLEX SIG - COLON CA SCREENING 1957 LIPID TESTING 1957 HEPATITIS C SCREENING 03/10/1975 DTAP/TDAP/TD VACCINES (1 - Tdap) 1976 PNEUMOCOCCAL VACCINE 50+ (1 of 1 - PCV) 2007 ZOSTER VACCINE (1 of 2) 2007 COVID-19 VACCINE ( - 2023- season) 2023 01/03/2022, 12/27/2021, 08/30/2021, Additional history exists INFLUENZA VACCINE (#1) 2023 , 01/03/2022, 01/04/2021, Additional history exists DEPRESSION SCREENING 03/27/2024 MAMMOGRAM 04/04/2025 04/04/2023, 04/04/2023 Respiratory Syncytial Virus (RSV) Vaccine Pt: or over 60 yrs (1 - 1-dose 75+ series) 2032 BONE DENSITY TESTING Completed 05/16/2023 HEPATITIS B VACCINE Aged Out No longe r eligible based on patient's age to complete this topic HIB VACCINE Aged Out No longer eligi ble based on patient's age to complete this topic HPV VACCINE Aged Out No longer eligi ble based on patient's age to complete this topic MENINGOCOCCAL (Group B) VACCINE Aged Out No longer eligible based on patient's age to complete this topic MENINGOCOCCAL VACCINE Aged Out No wil nataly eligible based on patient's age to complete this topic Care Teams Banbury Operator Relationship Specialty Start Date End Date Dewey Vieyra MD [address] [facility] [address] [address] PCP - General Internal Medicine 02/20/16
[2024-05-12 08:58] VITALS: BP 133/69; PULSE 77; RESP 18; TEMP 36.5; O2SAT 100
--- NOTE | 2024-05-12 09:14 | ED.URI ---
HPI - URI/Sore Throat General Chief Complaint: Upper Respiratory Infection Stated Complaint: cough / LT Ear Pain Time Seen by Provider: 05/12/24 09:13 Source: patient Mode of arrival: ambulatory Limitations: no limitations History of Present Illness HPI Narrative: 69-year-old female presents to [facility] with complaints of nonproductive cough, postnasal drip and left ear itchiness for the past 5-6 days. Patient reports that she recently traveled to [place] 2 weeks ago. Patient denies sick contacts. Patient has been taking [id number] Shahla, Flonase and Sudafed with little relief. Patient is a nonsmoker. Patient denies fever, body aches, chills, nausea, vomiting, diarrhea, shortness of breath or wheezing. MD elicited complaint: cough, rhinorrhea, nasal congestion and other (Left ear itchiness) Onset (ago): day(s) (6) Able to tolerate fluids by mouth: Yes Exacerbating factors: nothing Relieving factors: nothing Treatments prior to arrival: cold medicine Related Data Home Medications ?Medication ?Instructions ?Recorded ?Confirmed ?Last Taken ?Type lisinopril 20 mg tablet 20 mg PO DAILY 03/25/19 02/21/24 Unknown History fenofibrate nanocrystallized 145 145 mg PO DAILY 12/12/20 02/21/24 Unknown History mg tablet pantoprazole 40 mg tablet,delayed 40 mg PO DAILY 12/12/20 02/21/24 Unknown History release alendronate 70 mg tablet 70 mg PO WE 02/21/24 02/21/24 Unknown History fexofenadine 60 mg tablet 60 mg PO Q12H 02/21/24 02/21/24 Unknown History fluticasone propionate 50 1 spray intranasal DAILY 02/21/24 02/21/24 Unknown History mcg/actuation nasal spray,suspension multivitamin 1 tablet PO DAILY 02/21/24 02/21/24 Unknown History polyethylene glycol 3350 17 gram 17 g PO DAILY 02/21/24 02/21/24 Unknown History oral powder packet (Miralax) budesonide 160 mcg-glycopyr 9 2 inh inhalation ONCE 05/12/24 Unknown History mcg-formot 4.8 mcg/actuation HFA inhaler (Breztri Aerosphere) Allergies Allergy/AdvReac Type Severity Reaction Status Date / Time adhesive Allergy Rash Verified 05/12/24 09:09 amoxicillin (From Augmentin) Allergy Rash Verified 05/12/24 09:09 cat dander Allergy Other Verified 05/12/24 09:09 clavulanic acid (From Allergy Rash Verified 05/12/24 09:09 Augmentin) latex Allergy Rash Verified 05/12/24 09:09 linaclotide (From Linzess) Allergy Gastrointestinal Verified 05/12/24 09:09 Upset mold Allergy Other Verified 05/12/24 09:09 pollen extracts Allergy Other Verified 05/12/24 09:09 tree and shrub pollen Allergy Other Verified 05/12/24 09:09 codeine AdvReac Gastrointestinal Verified 05/12/24 09:09 Upset Review of Systems Constitutional: Constitutional: Denies chills, Denies fatigue, Denies fever(s) and Denies weakness ENT: Denies vertigo, Denies dizziness, Denies epistaxis, Reports nasal congestion and Denies sore throat Respiratory: Respiratory: Denies chest congestion, Reports cough, Denies dyspnea and Denies wheezing Gastrointestinal: Gastrointestinal: Denies diarrhea, Denies nausea and Denies vomiting Musculoskeletal: Musculoskeletal: Denies arthralgias and Denies joint swelling Integumentary/Breasts: Skin/Breast: Denies pruritus, Denies erythema and Denies rash Neurologic: Denies vertigo, Denies dizziness, Denies syncope and Denies headache(s) [facility] Past Medical History Medical History Asthma GERD (gastroesophageal reflux disease) High cholesterol HTN (hypertension) Surgical History Surgical History H/O hemorrhoidectomy banding 03/17 Social History Social History Smoking status: Never smoker Alcohol intake: never Living arrangements: alone Gender identity (if verbalized by the patient): Female Comments At time of signature, I agree with nursing past medical, surgical, social and family history. There is no relevant family history pertinent to the presenting complaint. Exam Const: General: healthy appearing and no acute distress Nutritional Appearance: well nourished Orientation/consciousness: patient oriented x3 Limitations: no limitations HENMT: Head: normal to inspection Ears: external ears normal, TM's normal bilaterally and EAC's normal Face/Nose/Sinus: Normal external nose present Face and sinus: normal facial exam Mouth: Yes lip normal and Yes moist mucous membranes Throat: uvula midline Other: Mild erythema noted to posterior oropharynx Eyes: Conjunctivae: conjunctivae normal Neck: Neck: normal visual inspection Resp: Effort & Inspection: normal respiratory effort and not labored Auscultation: clear to auscultation bilaterally, no crackles, no rales, no rhonchi and no wheezes Other: Frequent dry cough noted. Cardio: Rate: regular rate Rhythm: regular rhythm Heart sounds: no murmurs Skin: General skin exam: normal color Rashes: no rashes Wounds: no wounds Neuro: General: patient oriented x3 and moves all extremities Speech: normal speech Gait exam (Neuro): Normal gait present Extrem: General: normal to inspection Psych: Affect: normal affect Attitude: cooperative Course Course Level of Care: Express Care Visit Vital Signs Vital signs: Vital Signs Temperature 36.5 C 05/12/24 08:58 Pulse Rate 77 05/12/24 08:58 Respiratory Rate 18 05/12/24 08:58 Blood Pressure 133/69 05/12/24 08:58 Pulse Oximetry 100 05/12/24 08:58 Oxygen Delivery Room Air 05/12/24 08:58 Temperature 36.5 C 05/12/24 08:58 Pulse Rate 77 05/12/24 08:58 Respiratory Rate 18 05/12/24 08:58 Blood Pressure 133/69 05/12/24 08:58 Pulse Oximetry 100 05/12/24 08:58 Oxygen Delivery Room Air 05/12/24 08:58 MDM - URI/Sore Throat MDM Narrative Medical decision making narrative: Educated patient to continue Shahla and Flonase daily. Educated patient take antibiotic as prescribed and to take Tessalon Perles as needed for cough. Instructed patient to follow-up with primary care provider if symptoms not improving and to proceed to the emergency room symptoms worsen Differential Diagnosis Differential diagnosis: Likely otitis media, sinusitis and viral infection Critical Care Time Critical Care Time Critical Care Time: No Discharge Plan Discharge Clinical Impression: Upper respiratory infection Qualifiers: URI type: unspecified URI Qualified Code(s): J06.9 - Acute upper respiratory infection, unspecified Patient Disposition: Home, Self-Care Condition: Stable Instructions: Antibiotic Form, Upper Respiratory Infection (ED) Additional Instructions: Take antibiotic as prescribed Take Tessalon Perles as needed for cough Continue Shahla and Flonase daily Follow-up with primary care provider if symptoms not improved Proceed to the emergency room if symptoms worsen Patient Language: Indonesian Prescriptions: New azithromycin [Zithromax Z-Rbendan] 250 mg tablet See Rx Instructions .ROUTE .COMPLEX Qty: 6 0RF Rx Instructions: For 250 mg dose pack: take 500 mg today (day 1), then 250 mg for 4 days (days 2-5) benzonatate 100 mg capsule 100 mg PO TID PRN (Reason: cough) Qty: 20 0RF No Action multivitamin [One A Day] Tablet 1 tablet PO DAILY polyethylene glycol 3350 [Miralax] 17 gram Powder In Packet 17 g PO DAILY fexofenadine [Shahla] 60 mg Tablet 60 mg PO Q12H alendronate 70 mg tablet 70 mg PO WE fluticasone propionate [Flonase] 50 mcg/actuation [place],Suspension 1 spray INTRANASAL DAILY Rx Instructions: administer into each nostril Breztri Aerosphere 160-9-4.8 mcg/actuation HFA aerosol inhaler 2 inh inhalation ONCE fenofibrate nanocrystallized 145 mg tablet 145 mg PO DAILY pantoprazole 40 mg tablet,delayed release (DR/EC) 40 mg PO DAILY lisinopril 20 mg tablet 20 mg PO DAILY Follow-up/Referrals: Juan Francisco,Magda Campuzano MD [Primary Care Provider] - Time of Disposition: 09:25
--- OUTSIDE RECORDS SUMMARY | 2024-05-12 10:30 | XMS_ITS | Encounter Summary ---
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
--- OUTSIDE RECORDS SUMMARY | 2024-05-12 10:30 | XMS_ITS | Clinical Summary ---
Author Organization [facility] Address [address] [place] [address] Care Team Providers Care Gallery Manager Name Role Phone Magda Chicas MD Primary Care Provider Allergies Active Allergy Reactions Criticality Noted Date Comments Amoxicillin-Pot Clavulanate Diarrhea,Vomiting High 06/03/2019 Cat Dander Eye irritation,Sneezing Low 05/20/2022 Codeine Stomach upset,Vomiting Low 02/20/2016 Latex Rash Medium 01/01/2019 [place] rash Linaclotide Diarrhea Medium 06/03/2019 Pollen Extracts [...] 11/23/2021 Assessment & Plan (04/16/2023 5:01 PM DIPLOMA MAKER): This seems to be under pretty good control. No need for further intervention. Taking medication as needed. Assessment & Plan (02/07/2023 7:59 PM DIPLOMA MAKER): She seems to do quite a bit better on this medication. She does have occasional breakthrough symptoms and I felt that she could try taking the sjzd-[id number]-[id number] pantoprazole when that happens. Otherwise no need for further intervention. Refills being given. Assessment & Plan (11/23/2021 9:18 AM CDT): I think this is likely with causing the cough. Increasing her PPI to twice a day. History of eye trauma 06/29/2021 Overview (06/29/2021): Hx R orbital floor blowout fx 04/2015, observed: --> Received facial CT report from [facility] in [place], [place]. --scanned in 12/2019 Assessment & Plan (07/11/2023 12:57 PM CDT): Hx R orbital floor blowout fx 04/2015, observed: --> Received facial CT report from [facility] in [place], [place]. --scanned in 12/2019 No residual visual [...] observed: --> Received facial CT report from [facility] in [place], [place]. --scanned in 12/2019 No residual visual issues. Doesn't get diplopia much. Sometimes gets and then blinks to resolve Assessment & Plan (06/29/2021 10:12 AM CDT): Hx R orbital floor blowout fx 04/2015, observed: --> Received facial CT report from [facility] in [place], [place]. --scanned in 12/2019 May be related [...] OCT/DFE. Assessment & Plan (04/11/2024 11:26 AM DIPLOMA MAKER): Full visual field (VF), IOPs normal range [...] (05/19/2022): Added automatically from request for surgery [id number] Cough 11/23/2021 01/11/2022 Assessment & Plan (11/23/2021 [...] 05/02/2024 Assessment & Plan (04/11/2024 10:02 AM DIPLOMA MAKER): Mild cataract OU. Vision is stable. Patient [...] 10/12/2023 Assessment & Plan (04/16/2023 5:02 PM DIPLOMA MAKER): I do not find any evidence of [...] Department Care Team Description 04/22/2024 1:43 PM DIPLOMA MAKER - 04/22/2024 11:59 PM DIPLOMA MAKER Hospital Encounter [facility] Breast Imaging [address] [place] [phone] Screening mammogram, encounter for Discharge Disposition: Discharge to home or self care 04/11/2024 9:30 AM DIPLOMA MAKER Office Visit [facility] [address] [facility], [address] [place] [address] Anny Motley, OD Suspected glaucoma of both eyes (Primary Dx); Age-related nuclear cataract of both eyes 04/11/2024 9:00 AM DIPLOMA MAKER Imaging Exam [facility] [address] [phone] Suspected glaucoma of both eyes from Last 3 Months Immunizations Immunization Administration Dates Next Due COVID-19 mRNA (Corefino) 0.3 m L (30 mcg) vaccine (12 [...] on file Legal Sex Female 8:40 AM DIPLOMA MAKER Gender Identity Female 11/20/2020 6:50 PM CDT Sexual Orientation Straight 11/20/2020 6: 50 PM CDT 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 Not on file [...] CDT Respiratory Rate 18 04/12/2023 3:30 PM DIPLOMA MAKER Oxygen Saturation 96% 10/23/2023 10:33 AM CDT [...] history exists Medical Devices Implanted Type Area Coke Oven Patcher Device Identifier Shelf Expiration Date Model / Serial / Lot [employer] Tenodesis 6.25mm 15mm Acl Screw Interference Biocomposite Sterile Ar-1562bc - S0 - [id number] Implanted:Qty: 1 on 05/25/2022 by Armen Ortega MD at [facility] Screw Left: Calcaneus [employer] [id number] 01/24/2026 AR-1562BC / 0 / [id number] [employer] Corkscrew Ii Fiberwire 5.5mm 16.3mm 2 2 Full Thread Odell Suture [id number] - [id number] Implanted:Qty: 1 on 05/25/2022 by Armen Ortega MD at [facility] Left: Calcaneus [employer] [id number] 04/26/2025 [id number] / / [id number] [employer] Corkscrew Ii Fiberwire 5.5mm 16.3mm 2 2 Full Thread Odell Suture [id number] - [id number] Implanted:Qty: 1 on 05/25/2022 by Armen Ortega MD at [facility] Left: Calcaneus Angie Inc [id number] 04/26/2025 [id number] / / [id number] Procedures Procedure Name Priority Date/Time Associated Diagnosis Comments SCREENING MAMMOGRAM BILATERAL W TIBURCIO Schedule Routine, Read Routine (OP Routine) 04/22/2024 2:06 PM DIPLOMA MAKER Screening mammogram, encounter for CORREIA VISUAL FIELD - OU - BOTH EYES Routine 04/11/2024 9:33 AM DIPLOMA MAKER Suspected glaucoma of both eyes DEXA AXIAL SKELETON BONE DENSITY 1 OR MORE SITES Schedule Routine, Read Routine (OP Routine) 05/16/2023 7:45 AM DIPLOMA MAKER Abnormal bone density screening HM COLONOSCOPY Routine 03/09/2022 HEPATITIS C ANTIBODY Routine 01/13/2020 8:44 AM CDT Encounter for hepatitis C screening test for low risk patient from Last 3 Months or Most Recently Relevant to Health Maintenance Results * Screening Mammogram Bilateral W Tiburcio (04/22/2024 2:06 PM DIPLOMA MAKER) Anatomical Region Laterality Modality Breast Bilateral Mammography Impressions 04/22/2024 3:36 PM DIPLOMA MAKER BI-RADS ATLAS category (overall): 1 - Negative There is no mammographic evidence of malignancy. A 1 year screening mammogram is recommended. The patient has been or will be contacted. We recommend annual screening mammography for women at average risk of breast cancer beginning at age 40, based on guidelines of the [place] [employer] (ACR Practice Parameter for the Performance of Screening and Diagnostic Mammography) and [place] [employer]. For women with and elevated risk of breast cancer, please refer to the ACR Practice Parameter for specific screening recommendations. The patient will be entered into a reminder system with a target due date of 1 year for her next screening exam. Narrative 04/22/2024 3:36 PM DIPLOMA MAKER Screening Mammogram Bilateral W Tiburcio: 04/22/24 The [...] OU - Both Eyes (04/11/2024 9:33 AM DIPLOMA MAKER) Pattern Deviation OS 1.96 dB CONTINUUM Pattern Deviation OD 2.76 dB CONTINUUM Mean Deviation OS 1.75 dB CONTINUUM Mean Deviation OD 3.73 dB CONTINUUM Anatomical Region Laterality Modality Head Other Narrative 04/11/2024 9:38 AM DIPLOMA MAKER Right Eye Fixation was good. Cooperation was [...] 1 or 2 Site (05/16/2023 7:45 AM DIPLOMA MAKER) Anatomical Region Laterality Modality Body N/A Mammography 05/16/2023 5:08 PM DIPLOMA MAKER Narrative 05/16/2023 5:09 PM DIPLOMA MAKER EXAM DESCRIPTION: DEXA AXIAL SKELETON BONE DENSITY 1 OR MORE SITES REASON FOR STUDY: 68 y/o year old F with given history of: age related screening Postmenopausal Coke Oven Patcher/Model: Hologic Horizon A (S/N [id number]) CLINICAL INFORMATION: Current height: 60 inches Maximum [...] Garrett Hobbs M.D. MF: NADINE Report ID: [id number] Reading Location: [place] [address] Procedure Note Garrett Hobbs MD - 05/16/2023 EXAM DESCRIPTION: DEXA AXIAL SKELETON BONE DENSITY 1 OR MORE SITES REASON FOR STUDY: 68 y/o year old F with given history of: agerelated screening Postmenopausal Coke Oven Patcher/Model: Mibio A (S/N [id number]) CLINICAL INFORMATION: Current height: 60 inches Maximum [...] Garrett Hobbs M.D. MF: NADINE Report ID: [id number] Reading Location: [place] [address] Aleksandra Brody CUSTOMER ENGAGEMENT MANAGER IMG DXA PROCEDURES Final Res ult * [...] a test for HCV RNA (test code 85344) is suggested. For additional information please refer to http://education.Auto Load Logic/faq/BAK09a7 (This link is being provided for informational/ educational purposes only.) Blood specimen (specimen) 01/13/2020 8:44 AM CDT 01/13/2020 8:46 AM CDT Anjana Alexandra NP LAB MICROBIOLOGY - GENERAL OR DERABLES Final Result [facility] [id number] [address] [id number] from Last 3 Months or Most Recently Relevant to Health Maintenance Insurance [facility] [id number] [facility] [id number] MEDICARE [facility] Address: [address] [address] [place] [address] Care Teams Gallery Manager Relationship Specialty Start Date End Date Magda Chicas MD PCP - General Internal Medicine 11/26/20
--- OUTSIDE RECORDS SUMMARY | 2024-05-12 10:30 | XMS_ITS | Clinical Summary ---
Author Organization [facility] [email or web address] Address [address] [facility] [place] [address] Care Team Providers Care Canvas Cutter Machine Name Role Phone Dewey Vieyra MD Primary Care Provider [phone] Source Comments [facility] [email or web address],non-owned Affiliates and Associated Physician Practices is amultiple site organization consisting of ambulatory clinics and hospital sitesin [place], [place], [place] and [place]. This disclosure is being madepursuant to the Care Everywhere program and may not contain all information available regarding this patient. Last updated 17.[facility] [email or web address] Allergies Active Allergy Reactions Criticality Noted Date Comments Codeine 02/20/2016 Latex Rash Medium 01/01/2019 [place] rash Medications * Be aware that medications [...] Comments Blood Pressure 112/64 02/20/2016 2:23 PM CORPORATE FINANCIAL ANALYST Pulse 68 02/20/2016 2:23 PM CORPORATE FINANCIAL ANALYST Temperature 36.8 C (98.2 F) 02/20/2016 2:23 PM CORPORATE FINANCIAL ANALYST Respiratory Rate 18 02/20/2016 2:23 PM CORPORATE FINANCIAL ANALYST Oxygen Saturation 99% 02/20/2016 2:23 PM CORPORATE FINANCIAL ANALYST Inhaled Oxygen Concentration - - Weight 81.6 kg (180 lb) 02/20/2016 2:23 PM CORPORATE FINANCIAL ANALYST Height 154.9 cm (5' 1 ) 02/20/2016 2:23 PM CORPORATE FINANCIAL ANALYST Body Mass Index 34.01 02/20/2016 2:23 PM CORPORATE FINANCIAL ANALYST Plan of Treatment Health Maintenance Due Date [...] age to complete this topic Care Teams Canvas Cutter Machine Relationship Specialty Start Date End Date Dewey Vieyra MD [address] [facility] [address] [address] PCP - General Internal Medicine 02/20/16
--- OUTSIDE RECORDS SUMMARY | 2024-05-12 10:30 | XMS_ITS | Continuity of Care Document ---
Author Organization [email or web address] [place] Address [address] [facility] [address] [place] [address] Phone Care Team Providers Care Route Delivery Supervisor Name Role Phone Jayson PT, DPT, Ben [...] Diagnoses Date Provider Providers Copied on Encounter [facility] [address] [place] [address], [place], [place], [id number], tel:[phone] [place] Pain in left ankle and joints of left footPain in left footStiffness of left ankle, not elsewhere classifiedOth er specified disorders of muscleMuscle weakness (generalized) 7-201 9 Jayson Contreras. . Referring Provider: Anjana Alexandra, [address] [place] [address], [place], [address]. tel:[phone] [place] [address], [place], [place], [address], tel:[phone] [place] No Information Sep-2 7 Muehl Doyle. [address] [place] [address], [facility] [address], [place], [facility], . tel:[phone] Referring Provider: Prema Rios, [address], [place], [address]. tel:[phone] [place] [address], [place], [place], [address], tel:[phone] [place] No Information Sep-2 7 Muehl Doyle. [address] [facility], [address], [place], [facility], . tel:[phone] Referring Provider: Prema Rios, [address], [place], [address]. tel:[phone], [id number], [place] tel:[phone] [place] No Information Sep-2 2- 7 Muehl Doyle. [address] [facility], [address], [place], [facility], [place]. tel:[phone] Referring Provider: Prema Rios, [address] [facility] [address], [place], [address]. tel:[phone] [facility] [address], [place], [place], [address], [place] tel:[phone] [place] No Information 7 Jared Earl. . Referring Provider: Prema Rios, [address], [place], [address]. tel:[phone] [facility] [address], [place], [place], [address], [place] tel:[phone] [place] No Information Nov- 7 Chong Doyle. [address] [place] [address], [address], [place], [facility], . tel:[phone] Referring Provider: Prema Rios, [address] [facility] [address], [place], [address]. tel:[phone] [facility], [place], [place], [address], [place] tel:[phone] [place] Pain in left legOth disrd of synovium and tendon, unspecified siteAbnormal postureOther bursitis of hip, left hipOth enthesopathie s of left lower limb, excluding foot Sep- 7 Jared Earl. . Referring Provider: Prema Rios, [address], [place], [address]. tel:[phone] [facility], [place], [place], [address], [place] tel:[phone] [place] No Information 6 David Portillo. [address] [place] [address], [address], [place], [facility], [place]. tel:[phone] Referring Provider: Romy Borden, [address] [facility] [address], [place], [address]. tel:[phone], [place], [place], [address], [place] tel:[phone] [place] No Information Sep-2 2-201 6 Hernandez Lindsey. [address] [place] [address], [address], [place], [facility], . tel:[phone] Referring Provider: Romy Borden, [address], [place], [address]. tel:[phone], [place], [place], [address], tel:[phone] [place] No Information 5-201 6 Hernandez Lindsey. [address] [place] [address], [address], [place], [facility], . tel:[phone] Referring Provider: Romy Borden, [address], [place], [address]. tel:[phone], [place], [place], [address], [place] tel:[phone] [place] No Information Sep-0 6-201 6 Hernandez Lindsey. [address] [place] [address], [address], [place], [facility], . tel:[phone] Referring Provider: Romy Borden, [address], [place], [address]. tel:[phone], [place], [place], [address], [place] tel:[phone] [place] No Information 0 1-201 6 Hernandez Lindsey. [address] [place] [address], [address], [place], [facility], . tel:[phone] Referring Provider: Romy Borden [address], [place], [address]. tel:[phone], [place], [place], [address], tel:[phone] [place] No Information Agustin-2 7-201 6 Hernandez Lindsey. [address] [place] [address], [address], [place], [facility], . tel:[phone] Referring Provider: Romy Borden, [address], [place], [address]. tel:[phone], [place], [place], [address], tel:[phone] [place] No Information Agustin-2 4-201 6 Hernandez Lindsey. [address] [place] [address], [address], [place], [facility], . tel:[phone] Referring Provider: Romy Borden [address], [place], [address]. tel:[phone] [address], [place], [place], [address], tel:[phone] [place] No Information Agustin-2 0-201 6 Hernandez Lindsey. [address] [place] [address], [address], [place], [facility], . tel:[phone] Referring Provider: Romy Borden, [address], [place], [address]. tel:[phone], [place], [place], [address], tel:[phone] [place] No Information Agustin-1 7-201 6 Hernandez Lindsey. [address] [place] [address], [address], [facility], . tel:[phone] Referring Provider: Romy Borden [address], [place], [address]. tel:[phone], [place], [place], [address], tel:[phone] [place] No Information Agustin-1 3-201 6 Hernandez Lindsey. [address] [place] [address], [address], [place], [address], . tel:[phone] Referring Provider: Romy Borden [address], [place], [address]. tel:[phone], [place], [place], [address], [place] tel:[phone] [place] No Information Agustin-1 0-201 6 Hernandez Lindsey. [address] [place] [address], [address], [place], [facility], [place]. tel:[phone] Referring Provider: Romy Borden [address], [place], [address]. tel:[phone], [place], [place], [address], [place] tel:[phone] [place] No Information Agustin-0 6-201 6 Hernandez Lindsey. [address] [place] [address], [address], [place], [facility], [place]. tel:[phone] Referring Provider: Romy Borden [address], [place], [address]. tel:[phone], [place], [place], [address], [place] tel:[phone] [place] No Information Agustin-0 3-201 6 Hernandez Lindsey. [address] [place] [address], [address], [place], [address], [place]. tel:[phone] Referring Provider: Romy Borden [address], [place], [address]. tel:[phone], [place], [place], [address], [place] tel:[phone] [place] No Information Agustin-0 1-201 6 Hernandez Lindsey. [address] [place] [address], [address], [facility], . tel:[phone] Referring Provider: Romy Borden [address], [place], [address]. tel:[phone] [facility], [address] [place], [place] [address], [place], [place], [address], tel:[phone] [place] No Information May-2 7-201 6 Bagautdinova Gemma. [address] [place] [address], [address], [place], [facility], . tel:[phone] Referring Provider: Romy Borden [address], [place], [address]. tel:[phone] [address], [place], [place], [address], tel:[phone] [place] No Information May-2 3-201 6 Bagautdinova Gemma. [address] [place] [address], [address], [place], [facility], . tel:[phone] Referring Provider: Romy Borden [address], [place], [address]. tel:[phone] [address], [place], [place], [address], tel:[phone] [place] No Information May-2 0-201 6 Hernandez Lindsey. [address] [place] [address], [address], [place], [facility], . tel:[phone] Referring Provider: Romy Borden [address], [place], [address]. tel:[phone] [address], [place], [place], [address], tel:[phone] [place] No Information May-1 6-201 6 Hernandez Lindsey. [address] [place] [address], [address], [place], [facility], . tel:[phone] Referring Provider: Romy Borden, [address], [place], [address]. tel:[phone], [place], [place], [address], tel:[phone] [place] No Information May-1 3-201 6 Hernandez Lindsey. [address] [place] [address], [address], [place], [facility], . tel:[phone] Referring Provider: Romy Borden, [address], [place], [address]. tel:[phone] [address], [place], [address], tel:[phone] [place] No Information May-1 1-201 6 Hernandez Lindsey. [address] [place] [address], [address], [place], [facility], . tel:[phone] Referring Provider: Romy Borden [address], [place], [address]. tel:[phone] [address] [place] [address], [id number], tel:[phone] [place] No Information May-0 9-201 6 Hernandez Lindesy. [address] [place] [address], [address], [place], [facility], . tel:[phone] Referring Provider: Romy Borden [address], [place], [address]. tel:[phone] [address], [place], [address], tel:[phone] [place] No Information May-0 6-201 6 Hernandez Lindsey. [address] [place] [address], [address], [place], [facility], . tel:[phone] Referring Provider: Romy Borden [address], [place], [address]. tel:[phone], [place], [place], [address], tel:[phone] [place] No Information May-0 4-201 6 Hernandez Lindsey. [address] [place] [address], [address], [place], [facility], . tel:[phone] Referring Provider: Romy Borden, [address], [place], [address]. tel:[phone] [address], [place], [place], [address], tel:[phone] [place] No Information May-0 2-201 6 Hernandez Lindsey. [address] [place] [address], [address], [place], [facility], . tel:[phone] Referring Provider: Romy Borden, [address], [place], [address]. tel:[phone] [address], [place], [place], [address], tel:[phone] [place] No Information Apr-2 9-201 6 Hernandez Lindsey. [address] [place] [address], [address], [place], [facility], . tel:[phone] Referring Provider: Romy Borden, [address], [place], [address]. tel:[phone], [place], [place], [address], [place] tel:[phone] [place] No Information Apr-2 7-201 6 Hernandez Lindsey. [address] [place] [address], [address], [place], [facility], . tel:[phone] Referring Provider: Romy Borden [address], [place], [address]. tel:[phone] [address], [place], [place], [address], tel:[phone] [place] No Information Apr-2 5-201 6 Maricel Menendez. [address] [place] [address], [address], [place], [facility], . tel:[phone] Referring Provider: Romy Borden, [address], [place], [address]. tel:[phone] [address], [place], [place], [address], tel:[phone] [place] No Information Apr-2 0-201 6 Davdi Portillo. [address] [place] [address], [address], [place], [facility], . tel:[phone] Referring Provider: Romy Borden, [address], [place], [address]. tel:[phone] [address], [place], [place], [address], tel:[phone] [place] No Information Jun- 8-201 6 David Portillo. [address] [place] [address], [address], [place], [facility], . tel:[phone] Referring Provider: Romy Borden, [address], [place], [address]. tel:[phone] [address], [place], [place], [address], tel:[phone] [place] No Information Jun- 5-201 6 David Portillo. [address] [place] [address], [address], [facility], . tel:[phone] Referring Provider: Romy Borden, [address], [place], [address]. tel:[phone] [facility] [address] [facility] [address], [place], [place], [address], [place] tel:[phone] [place] No Information Apr-1 3-201 6 Hernandez Lindsey. [address] [place] [address], [address], [place], [facility], . tel:[phone] Referring Provider: Romy Borden [address], [place], [address]. tel:[phone] [address], [place], [place], [address], tel:[phone] [place] No Information Apr-0 6-201 6 Hernandez Lindsey. [address] [place] [address], [address], [place], [facility], [place]. tel:[phone] Referring Provider: Romy Borden [address], [place], [address]. tel:[phone] [address] [facility], [place], [place], [address], tel:[phone] [place] No Information Apr-0 4-201 6 Hernandez Lindsey. [address] [place] [address], [address], [place], [facility], [place]. tel:[phone] Referring Provider: Romy Borden [address], [place], [address]. tel:[phone] [address], [place], [place], [address], tel:[phone] [place] No Information Apr-0 1-201 6 Hernandez Lindsey. [address] [place] [address], [address], [place], [address], [place]. tel:[phone] Referring Provider: Romy Borden [address], [place], [address]. tel:[phone], [place], [place], [address], tel:[phone] [place] No Information Mar-3 0-201 6 Hernandez Lindsey. [address] [place] [address], [address], [place], [facility], . tel:[phone] Referring Provider: Romy Borden [address], [place], [address]. tel:[phone], [place], [place], [address], tel:[phone] [place] No Information Mar-2 8-201 6 Hernandez Lindsey. [address] [place] [address], [address], [place], [facility], [place]. tel:[phone] Referring Provider: Romy Borden [address], [place], [address]. tel:[phone] [address], [place], [place], [address], [place] tel:[phone] [place] No Information Mar-2 5-201 6 Hernandez Lindsey. [address] [place] [address], [address], [place], [facility], [place]. tel:[phone] Referring Provider: Romy Borden [address], [place], [address]. tel:[phone], [place], [address], [place] tel:[phone] [place] No Information Mar-2 3-201 6 Hernandez Lindsey. [address] [place] [address], [address], [place], [facility], [place]. tel:[phone] Referring Provider: Romy Borden [address], [place], [address]. tel:[phone] [address], [place], [place], [address], tel:[phone] [place] No Information Mar-2 1-201 6 Hernandez Lindsey. [address] [place] [address], [address], [facility], [place]. tel:[phone] Referring Provider: Romy Borden, [address], [place], [address]. tel:[phone] [facility] [place] [address] [address], [place], [place], [address], [place] tel:[phone] [place] Stiffness of unspecified wrist, not elsewhere classifiedPai n in left wristFx unsp carpal bone, left wrist, subs for fx w routn heal 8201 6 Maricel Menendez. [address] [facility], [address], [place], [address], [place]. tel:[phone] Referring Provider: Romy Borden, [address], [place], [address]. tel:[phone] Family History Family Member Type Diagnosis Age At Onset No Information Payers Payer name Insurance type Covered republican ID Authoriza tion(s) No Information Social History [...]
--- OUTSIDE RECORDS SUMMARY | 2024-05-12 10:30 | XMS_ITS | Referral Summary ---
Author Organization [facility] Address [address] [place] [address] Care Team Providers Care Police Patrol Lieutenant Name Role Phone Magda Chicas MD Primary Care Provider Encounters Date Type Department Care Team Description 04/22/2024 1:43 PM WASH OPERATOR - 04/22/2024 11:59 PM WASH OPERATOR Hospital Encounter [facility] Breast Imaging [facility] [place] [address] Screening mammogram, encounter for Discharge Disposition: Discharge to home or self care 04/11/2024 9:00 AM WASH OPERATOR Imaging Exam [facility] [address] [place] [id number] Suspected glaucoma of both eyes 04/11/2024 9:30 AM WASH OPERATOR Office Visit [facility] 6th Floor, [address] [facility] [place] [address] Anny Motley, OD Suspected glaucoma of both eyes (Primary Dx); Age-related nuclear cataract of both eyes from Last 3 Months Allergies Active Allergy Reactions Criticality Noted Date Comments Amoxicillin-Pot Clavulanate Diarrhea,Vomiting High 06/03/2019 Cat Dander Eye irritation,Sneezing Low 05/20/2022 Codeine Stomach upset,Vomiting Low 02/20/2016 Latex Rash Medium 01/01/2019 [place] rash Linaclotide Diarrhea Medium 06/03/2019 Pollen Extracts [...] 11/23/2021 Assessment & Plan (04/16/2023 5:01 PM WASH OPERATOR): This seems to be under pretty good control. No need for further intervention. Taking medication as needed. Assessment & Plan (02/07/2023 7:59 PM WASH OPERATOR): She seems to do quite a bit better on this medication. She does have occasional breakthrough symptoms and I felt that she could try taking the rbvf-azv-ojwqaxo pantoprazole when that happens. Otherwise no need for further intervention. Refills being given. Assessment & Plan (11/23/2021 9:18 AM CDT): I think this is likely with causing the cough. Increasing her PPI to twice a day. History of eye trauma 06/29/2021 Overview (06/29/2021): Hx R orbital floor blowout fx 04/2015, observed: --> Received facial CT report from [facility] in [place], [place]. --scanned in 12/2019 Assessment & Plan (07/11/2023 12:57 PM CDT): Hx R orbital floor blowout fx 04/2015, observed: --> Received facial CT report from [facility] in [place], [place]. --scanned in 12/2019 No residual visual [...] Received facial CT report from [facility] in [place], [place]. --scanned in 12/2019 No residual visual issues. Doesn't get diplopia much. Sometimes gets and then blinks to resolve Assessment & Plan (06/29/2021 10:12 AM CDT): Hx R orbital floor blowout fx 04/2015, observed: --> Received facial CT report from [facility] in [place], [place]. --scanned in 12/2019 May be related [...] OCT/DFE. Assessment & Plan (04/11/2024 11:26 AM WASH OPERATOR): Full visual field (VF), IOPs normal range [...] (05/19/2022): Added automatically from request for surgery [id number] Cough 11/23/2021 01/11/2022 Assessment & Plan (11/23/2021 [...] 05/02/2024 Assessment & Plan (04/11/2024 10:02 AM WASH OPERATOR): Mild cataract OU. Vision is stable. Patient [...] 10/12/2023 Assessment & Plan (04/16/2023 5:02 PM WASH OPERATOR): I do not find any evidence of [...] Immunization Administration Dates Next Due COVID-19 mRNA ([employer]) 0.3 m L (30 mcg) vaccine (12 [...] vative Free, Intramuscular 01/15/2018,01/30/2016,02/01/2015 Influenza, Unspecified 01/03/2022,01/04/2021 Yeapoo SARS-CoV-2 Monovalent Vaccination (12+ Yrs) BUENROSTRO-READY TO USE 08/30/2021 Pfizer SARS-CoV-2 Monovalent Vaccination (12+ Yrs) PURPLE 01/03/2022,12/28/2020,06/10/2020,05/20 Yeapoo Sars-Cov-2 Bivalent V accination (12+ YRS) 12/27/2021 [...] on file Legal Sex Female 8:40 AM WASH OPERATOR Gender Identity Female 11/20/2020 6:50 PM CDT Sexual Orientation Straight 11/20/2020 6: 50 PM CDT 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 Not on file Not on fi le Last Filed Vital Signs Vital Sign Reading Time Taken Comments Blood Pressure 124/70 01/03/2024 10:07 AM CDT Pulse 81 10/23/2023 10:33 AM CDT Temperature 36.5 C (97.7 F) 10/23/2023 10:33 AM CDT Respiratory Rate 18 04/12/2023 3:30 PM WASH OPERATOR Oxygen Saturation 96% 10/23/2023 10:33 AM CDT Inhaled Oxygen Concentration - - Weight 84.4 kg (186 lb) 01/03/2024 10:07 AM CDT Height 149.9 cm (4' 11 ) 01/03/2024 10:07 AM CDT Body Mass Index 37.57 01/03/2024 10:07 AM CDT Plan of Treatment Not on file Medical Devices Implanted Type Area Ethnology Professor Device Identifier Shelf Expiration Date Model / Serial / Lot [employer] Tenodesis 6.25mm 15mm Acl Screw Interference Biocomposite Sterile [id number]-[id number] - S0 - [id number] Implanted:Qty: 1 on 05/25/2022 by Armen Ortega MD at [facility] Screw Left: Calcaneus [employer] [id number] 01/24/2026 [id number]-[id number] / 0 / [id number] [employer] Corkscrew Ii Fiberwire 5.5mm 16.3mm 2 2 Full Thread [place] Suture [id number] - [id number] Implanted:Qty: 1 on 05/25/2022 by Armen Ortega MD at [facility] Left: Calcaneus [employer] [id number] 04/26/2025 [id number] / / [id number] [employer] Corkscrew Ii Fiberwire 5.5mm 16.3mm 2 2 Full Thread [place]uma Suture [id number] - [id number] Implanted:Qty: 1 on 05/25/2022 by Armen Ortega MD at [facility] Left: Calcaneus [employer] [id number] 04/26/2025 [id number] / / [id number] Procedures Procedure Name Priority Date/Time Associated Diagnosis Comments SCREENING MAMMOGRAM BILATERAL W TIBURCIO Schedule Routine, Read Routine (OP Routine) 04/22/2024 2:06 PM WASH OPERATOR Screening mammogram, encounter for CORREIA VISUAL FIELD - OU - BOTH EYES Routine 04/11/2024 9:33 AM WASH OPERATOR Suspected glaucoma of both eyes DEXA AXIAL SKELETON BONE DENSITY 1 OR MORE SITES Schedule Routine, Read Routine (OP Routine) 05/16/2023 7:45 AM WASH OPERATOR Abnormal bone density screening HM COLONOSCOPY Routine 03/09/2022 HEPATITIS C ANTIBODY Routine 01/13/2020 8:44 AM CDT Encounter for hepatitis C screening test for low risk patient from Last 3 Months or Most Recently Relevant to Health Maintenance Results * Screening Mammogram Bilateral W Tiburcio (04/22/2024 2:06 PM WASH OPERATOR) Anatomical Region Laterality Modality Breast Bilateral Mammography Impressions 04/22/2024 3:36 PM WASH OPERATOR BI-RADS ATLAS category (overall): 1 - Negative There is no mammographic evidence of malignancy. A 1 year screening mammogram is recommended. The patient has been or will be contacted. We recommend annual screening mammography for women at average risk of breast cancer beginning at age 40, based on guidelines of the [place] [employer] (ACR Practice Parameter for the Performance of Screening and Diagnostic Mammography) and [place] [employer]. For women with and elevated risk of breast cancer, please refer to the ACR Practice Parameter for specific screening recommendations. The patient will be entered into a reminder system with a target due date of 1 year for her next screening exam. Narrative 04/22/2024 3:36 PM WASH OPERATOR Screening Mammogram Bilateral W Tiburcio: 04/22/24 The [...] OU - Both Eyes (04/11/2024 9:33 AM WASH OPERATOR) Pattern Deviation OS 1.96 dB CONTINUUM Pattern Deviation OD 2.76 dB CONTINUUM Mean Deviation OS 1.75 dB CONTINUUM Mean Deviation OD 3.73 dB CONTINUUM Anatomical Region Laterality Modality Head Other Narrative 04/11/2024 9:38 AM WASH OPERATOR Right Eye Fixation was good. 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 MF: NADINE Report ID: [id number] Reading Location: [place] [address] Aleksandra Brody QUITLINE COUNSELOR IMG DXA PROCEDURES Final Res ult * COLONOSCOPY (03/09/2022) [facility] Scribed Colonoscopy Normal Historical Provider HEALTH MAINTENANCE Final Result * Hepatitis C antibody (01/13/2020 8:44 AM CDT) [facility] Hep C Ab NON-REACTI VE NON-REACT JAZLYN [facility] SIGNAL TO CUT-OFF 0.01 <1.00 [facility] Comment: HCV antibody was non-reactive. There is no laboratory evidence of HCV infection. In most cases, no further action is required. However, if recent HCV exposure is suspected, a test for HCV RNA (test code 92689) is suggested. For additional information please refer to http://education.Wakie/Budist/faq/OFJ07u7 (This link is being provided for informational/ educational purposes only.) Blood specimen (specimen) 01/13/2020 8:44 AM CDT 01/13/2020 8:46 AM CDT Anjana Alexandra QUITLINE COUNSELOR LAB MICROBIOLOGY - GENERAL OR DERABLES Final Result [facility] [id number] [address] [phone] from Last 3 Months or Most Recently Relevant to Health Maintenance Insurance [facility] [id number] [employer] [facility] [id number] [facility] [id number] MEDICARE Care Teams Police Patrol Lieutenant Relationship Specialty Start Date End Date Magda Chicas MD PCP - General Internal Medicine 11/26/20
--- OUTSIDE RECORDS SUMMARY | 2024-05-12 10:30 | XMS_ITS | Encounter Summary ---
Author Organization [facility] Care Team Providers Care Bus Driver School Name Role Phone Magda Chicas MD Primary Care Provider Encounter Details Date Type Department Care Team (Latest Contact Info) Description 06/05/2017 Orders Only [facility] CLINCONV ProviderCésar MD [address] [place] [id number] Social History Tobacco Use Types Packs/Day Years Used Date Smoking Tobacco: Never Comments Unknown Sex and Gender Information Value Date Recorded Sex Assigned at Not on file Legal Sex Female 8:40 AM TUBE MAKER Gender Identity Female 11/20/2020 6:50 PM [...] on filedocumented in this encounter Care Teams Bus Driver School Relationship Specialty Start Date End Date Magda Chicas MD PCP - General Internal Medicine 11/26/20 documented as of this encounter
--- OUTSIDE RECORDS SUMMARY | 2024-05-12 10:30 | XMS_ITS | Patient Health Summary ---
Author Organization [facility] [employer] Address [address] [facility] [address] Care Team Providers Care Tie Fastener Name Role Phone Dewey Vieyra MD Primary Care Provider [phone] Note from [facility],non-owned Affiliates and Associated Physician Practices is amultiple site organization consisting of ambulatory clinics and hospital sitesin [place], [place], [place] and [place]. This disclosure is being madepursuant to the Care Everywhere program and may not contain all information available regarding this patient. Last updated 17.[facility] Allergies * Codeine * Latex(Rash) -Medium Criticality [...] Comments Blood Pressure 112/64 02/20/2016 2:23 PM CENTRAL SUPPLY NURSE Pulse 68 02/20/2016 2:23 PM CENTRAL SUPPLY NURSE Temperature 36.8 C (98.2 F) 02/20/2016 2:23 PM CENTRAL SUPPLY NURSE Respiratory Rate 18 02/20/2016 2:23 PM CENTRAL SUPPLY NURSE Oxygen Saturation 99% 02/20/2016 2:23 PM CENTRAL SUPPLY NURSE Inhaled Oxygen Concentration - - Weight 81.6 kg (180 lb) 02/20/2016 2:23 PM CENTRAL SUPPLY NURSE Height 154.9 cm (5' 1 ) 02/20/2016 2:23 PM CENTRAL SUPPLY NURSE Body Mass Index 34.01 02/20/2016 2:23 PM CENTRAL SUPPLY NURSE Care Teams Tie Fastener Relationship Specialty Start Date End Date Dewey Vieyra MD [facility] [address] [place] [phone] PCP - General Internal Medicine 02/20/16
--- OUTSIDE RECORDS SUMMARY | 2024-05-12 10:30 | XMS_ITS | Referral Summary ---
Author Organization [facility] Address [address] [place] [address] Care Team Providers Care Surgical Asst Name Role Phone Dewey Vieyra MD Primary Care Provider [phone] Source Comments [facility],non-owned Affiliates and Associated Physician Practices is amultiple site organization consisting of ambulatory clinics and hospital sitesin [place], [place], [place] and [place]. This disclosure is being madepursuant to the Care Everywhere program and may not contain all information available regarding this patient. Last updated 17.[facility] Allergies Active Allergy Reactions Criticality Noted Date Comments Codeine 02/20/2016 Latex Rash Medium 01/01/2019 [place] rash Medications * Be aware that medications [...] Comments Blood Pressure 112/64 02/20/2016 2:23 PM RN TELEHEALTH Pulse 68 02/20/2016 2:23 PM RN TELEHEALTH Temperature 36.8 C (98.2 F) 02/20/2016 2:23 PM RN TELEHEALTH Respiratory Rate 18 02/20/2016 2:23 PM RN TELEHEALTH Oxygen Saturation 99% 02/20/2016 2:23 PM RN TELEHEALTH Inhaled Oxygen Concentration - - Weight 81.6 kg (180 lb) 02/20/2016 2:23 PM RN TELEHEALTH Height 154.9 cm (5' 1 ) 02/20/2016 2:23 PM RN TELEHEALTH Body Mass Index 34.01 02/20/2016 2:23 PM RN TELEHEALTH Plan of Treatment Not on file Care Teams Surgical Asst Relationship Specialty Start Date End Date Dewey Vieyra MD [address] [facility] [place] [phone] PCP - General Internal Medicine 02/20/16
== END 2024-05-12 09:32 | disposition home or self-care (01) ==
PROVIDERS: Emergency Provider Nurse Practitioner Family; PCP Internal Medicine
DX: J06.9 Acute upper respiratory infection, unspecified (principal); I10 Essential (primary) hypertension; E78.5 Hyperlipidemia, unspecified; J45.909 Unspecified asthma, uncomplicated; K21.9 Gastro-esophageal reflux disease without esophagitis
CPT/HCPCS: 99213; G0463

== ENCOUNTER 2024-10-23 15:20 | Emergency (ER) | payer OTHER, SELFPAY ==
--- OUTSIDE RECORDS SUMMARY | 2024-10-23 15:23 | XMS_ITS | Referral Summary ---
Author Organization [employer] Address [address] [place] [address] Care Team Providers Care Land Checker Name Role Phone Magda Chicas MD Primary Care Provider Encounters Date Type Department Care Team Description 10/15/2024 10:20 AM CDT Imaging Exam [facility] [address] [place] [id number] Suspected glaucoma of both eyes 10/15/2024 10:45 AM CDT Office Visit [facility] [address] [address] 6th [address], [address] [facility] [place] [address] Osiris Ceja MD Age-related nuclear cataract of both eyes (Primary Dx); Suspected glaucoma of both eyes; History of eye trauma; Asthenopia of both eyes 09/30/2024 Orders Only [facility] [address] 2[address], [address] [place] [address] Osiris Ceja MD Suspected glaucoma of both eyes (Primary Dx) 08/12/2024 11:00 AM CDT Procedure visit [facility] [address] [facility] 7th [address] [place] [address] Incomplete bladder emptying (Primary Dx) from Last 3 Months Allergies Active Allergy Reactions Criticality Noted Date Comments Amoxicillin-Pot Clavulanate Diarrhea,Vomiting High 06/03/2019 Cat Dander Eye irritation,Sneezing Low 05/20/2022 Codeine Stomach upset,Vomiting Low 02/20/2016 Latex Rash Medium 01/01/2019 [place] rash Linaclotide Diarrhea Medium 06/03/2019 Pollen Extracts Eye irritation Low 11/23/2021 Medications multivitamin tabletIndications:V itamin Deficiency Prevention Take 1 tablet by mouth every morning Active polyethylene glycol (MIRALAX) 17 gram packetIndications:c onstipation Take 1 packet (17 g total) by mouth nightly Active fluticasone propionate (FLONASE) 50 mcg/actuation nasal spray Administer 2 sprays into each nostril daily 16 g 11 020 Active Additional Information Patient taking differently: 1 sprayeach nostril2 times daily, Indications: Allergic Rhinitis, Reported on 05/20/2022 fexofenadine (FAM) 180 mg tabletIndications:A llergic Rhinitis Take 1 tablet (180 mg total) by mouth nightly Active fenofibrate nanocrystallized (TRICOR) 145 mg tabletIndications:M ixed hyperlipidemia Take 1 tablet (145 mg total) by mouth daily 100 tablet 3 024 Active benzonatate (TESSALON) 100 mg capsuleIndications: Cough Take 1 capsule (100 mg total) by mouth 3 (three) times a day as needed for cough Active lisinopriL (PRINIVIL,ZESTRIL) 20 mg tablet Take 1 tablet (20 mg total) by mouth daily 100 tablet 1 025 Active omeprazole (PriLOSEC) 20 mg capsule Take 1 capsule (20 mg total) by mouth daily 025 Active azelastine (ASTELIN) 137 mcg (0.1 %) nasal spray Administer 2 sprays into each nostril 2 (two) times a day 025 Active estradioL (Estrace) 0.01 % (0.1 mg/gram) vaginal creamIndications:Bl adder prolapse, female, acquired Insert one gram vaginally daily at bedtime for 2 weeks and then DECREASE to 2 times per week (such as Monday/ y) 42.5 g 1 025 Active alendronate (FOSAMAX) 70 mg tablet TAKE 1 TABLET BY MOUTH ONCE WEEKLY EVERY MORNING WITH AN 8OZ GLASS OF WATER ON AN EMPTY STOMACH; NOTHING BY MOUTH AND DONT LIE DOWN FOR 30 MINUTES 12 tablet 3 025 Active alendronate (FOSAMAX) 70 mg tablet Take 1 tablet (70 mg total) by mouth every 7 days Take in the morning with a full glass of water, on an empty stomach, and do not take anything else by mouth or lie down for the next 30 min. 12 tablet 3 024 2024 Discontinued Active Problems Problem Noted Date Diagnosed Date Asthenopia of both eyes 10/15/2024 Assessment & Plan (10/15/2024 11:08 AM CDT): Happy with glasses with last year Sl hyperopic and presbyopic. Wears most of the time. Dermatochalasis of both upper eyelids 10/15/2024 Assessment & Plan (10/15/2024 11:09 AM CDT): Noted right eye (OD)>left eye (OS) Sl facial asymmetry Class 2 severe obesity due t o [...] 11/23/2021 Assessment & Plan (04/16/2023 5:01 PM PLANT DIRECTOR): This seems to be under pretty good control. No need for further intervention. Taking medication as needed. Assessment & Plan (02/07/2023 7:59 PM PLANT DIRECTOR): She seems to do quite a bit better on this medication. She does have occasional breakthrough symptoms and I felt that she could try taking the [id number] pantoprazole when that happens. Otherwise no need for further intervention. Refills being given. Assessment & Plan (11/23/2021 9:18 AM CDT): I think this is likely with causing the cough. Increasing her PPI to twice a day. History of eye trauma 06/29/2021 Overview (06/29/2021): Hx R orbital floor blowout fx 04/2015, observed: --> Received facial CT report from [facility] in [place], [place]. --scanned in 12/2019 Assessment & Plan (10/15/2024 10:48 AM CDT): Hx R orbital floor blowout fx 04/2015, observed: --> Received facial CT report from [facility] in [place], [place]. --scanned in 12/2019 No residual visual issues. Doesn't get diplopia much. Sometimes gets and then blinks to resolve Assessment & Plan (07/11/2023 12:57 PM CDT): Hx R orbital floor blowout fx 04/2015, observed: --> Received facial CT report from [facility] in [place], [place]. --scanned in 12/2019 No residual visual [...] Received facial CT report from [facility] in [place], [place]. --scanned in 12/2019 No residual visual issues. Doesn't get diplopia much. Sometimes gets and then blinks to resolve Assessment & Plan (06/29/2021 10:12 AM CDT): Hx R orbital floor blowout fx 04/2015, observed: --> Received facial CT report from [facility] in [place], [place]. --scanned in 12/2019 May be related to current diplopia, but pt only noticed today. Will check if monocular or binocular. Try higher OTC for near. Call if recurs. Age-related nuclear cataract of both eyes 2021 Assessment & Plan (10/15/2024 11:08 AM CDT): Not visually significant. Do not recommend surgery at this time. Continue to monitor. Patient to call if problems with activities of daily living. Assessment & Plan (04/11/2024 10:02 AM PLANT DIRECTOR): Mild cataract OU. Vision is stable. Patient [...] with activities of daily living. Brochure offered/given. Hemorrhoids 07/20/2020 Suspected glaucoma of both eyes [...] 1 year HVF/nerve OCT/DFE. Assessment & Plan (10/15/2024 11:14 AM CDT): ONOCT today note sl cupping left eye (OS)>right eye (OD) Generally healthy nerve fiber layer (NFL) Intraocular pressure (IOP) WNL both eyes (OU) Has never been on drops +FHX, thick pachs both eyes (OU) Assessment & Plan (04/11/2024 11:26 AM PLANT DIRECTOR): Full visual field (VF), IOPs normal range [...] (05/19/2022): Added automatically from request for surgery [id number] Cough 11/23/2021 01/11/2022 Assessment & Plan (11/23/2021 [...] further intervention. Follow-up with me as needed. Left ear pain 06/03/2019 10/12/2023 Assessment & Plan (04/16/2023 5:02 PM PLANT DIRECTOR): I do not find any evidence of [...] Immunization Administration Dates Next Due COVID-19 mRNA (Lukkin) 0.3 m L (30 mcg) vaccine (12 years and up) 01/02/2023 Hep A, 3 Dose 12/02/1999 Hep A, Pediatric 08/08/2000 Hep B, Unspecified 08/08/2000,01/24/2000, 000 Influenza, Quadrivalent, Estella l Culture-based MDCK, Preservative Free, Antibiotic Free, Intramuscular 01/04/2021 Influenza, Quadrivalent, Hig h Dose, Preservative Free, Intrr 12/22/2022 Influenza, Quadrivalent, Spl it, Intramuscular 12/05/2016 Influenza, Quadrivalent, Spl it, Preservative Free, Intramuscular 01/07/2022,01/20/2020,01/01/2019,01/08 Influenza, Trivalent, High D ose, Split, Preservative Free, Intramuscular 02/11/2024 Influenza, Trivalent, IM (MDV) 01/07/2014 Influenza, Trivalent, Preser vative Free, Intramuscular 01/15/2018,01/30/2016,02/01/2015 Influenza, Unspecified 01/03/2022,01/04/2021 Pfizer SARS-CoV-2 Monovalent Vaccination (12+ Yrs) BUENROSTRO-READY TO USE 08/30/2021 Pfizer SARS-CoV-2 Monovalent Vaccination (12+ Yrs) PURPLE 01/03/2022,12/28/2020,06/10/2020,05/20 Pfizer Sars-Cov-2 Bivalent V accination (12+ YRS) 12/27/2021 Pneumococcal Conjugate Pcv20 04/27/2023 Td, adsorbed 08/08/2000 Tdap 11/26/2020 [facility] [...] points, staff should administer the PHQ-9) 0 05/20/2024 Personal Safety Answer Date Recorded Getting School Help Needed Denies 03/24 Comments No Sex and Gender Information Value Date Recorded Sex Assigned at Not on file Legal Sex Female 8:40 AM PLANT DIRECTOR Gender Identity Female 11/20/2020 6:50 PM CDT Sexual Orientation Straight 11/20/2020 6: 50 PM CDT Occupation Industry Job Start Date Job End Date [employer] Not on file Not on file Not on fi le Last Filed Vital Signs Vital Sign Reading Time Taken Comments Blood Pressure 119/71 07/15/2024 9:08 AM CDT Pulse 80 05/20/2024 3:13 PM PLANT DIRECTOR Temperature 36.7 C (98 F) 05/20/2024 3:13 PM PLANT DIRECTOR Respiratory Rate 18 04/12/2023 3:30 PM PLANT DIRECTOR Oxygen Saturation 97% 05/20/2024 3:13 PM PLANT DIRECTOR Inhaled Oxygen Concentration - - Weight 87.5 kg (192 lb 12.8 oz) 07/15/2024 9:08 AM CDT Height 149.9 cm (4' 11) 07/15/2024 9:08 AM CDT Body Mass Index 38.94 07/15/2024 9:08 AM CDT Plan of Treatment Not on file Medical Devices Implanted Type Area Diesel Dinkey Operator Device Identifier Shelf Expiration Date Model / Serial / Lot [employer] Tenodesis 6.25mm 15mm Acl Screw Interference Biocomposite Sterile [id number] - S0 - [id number] Implanted:Qty: 1 on 05/25/2022 by Armen Ortega MD at [facility] Screw Left: Calcaneus [employer] [id number] 01/24/2026 [id number] / 0 / [id number] [employer] Corkscrew Ii Fiberwire 5.5mm 16.3mm 2 2 Full Thread [place] Suture [id number] - [id number] Implanted:Qty: 1 on 05/25/2022 by Armen Ortega MD at [facility] Left: Calcaneus [employer] [id number] 04/26/2025 [id number] / / [id number] [employer] Corkscrew Ii Fiberwire 5.5mm 16.3mm 2 2 Full Thread [place] Suture [id number] - [id number] Implanted:Qty: 1 on 05/25/2022 by Armen Ortega MD at [facility] Left: Calcaneus [employer] [id number] 04/26/2025 [id number] / / [id number] Procedures Procedure Name Priority Date/Time Associated Diagnosis Comments OCT, OPTIC NERVE - OU - BOTH EYES Routine 10/15/2024 11:10 AM CDT Suspected glaucoma of both eyes SCREENING MAMMOGRAM BILATERAL W TIBURCIO Schedule Routine, Read Routine (OP Routine) 04/22/2024 2:06 PM PLANT DIRECTOR Screening mammogram, encounter for DEXA AXIAL SKELETON BONE DENSITY 1 OR MORE SITES Schedule Routine, Read Routine (OP Routine) 05/16/2023 7:45 AM PLANT DIRECTOR Abnormal bone density screening HM COLONOSCOPY Routine 03/09/2022 HEPATITIS C ANTIBODY Routine 01/13/2020 8:44 AM CDT Encounter for hepatitis C screening test for low risk patient from Last 3 Months or Most Recently Relevant to Health Maintenance Results * OCT, Optic Nerve - OU - Both Eyes (10/15/2024 11:10 AM CDT) RNFL OS 86 micrometers CONTINUUM RNFL OD 90 micrometers CONTINUUM Anatomical Region Laterality Modality Head Other Narrative 10/15/2024 11:10 AM CDT Right Eye Reliability was good. Temporal thickness was normal. Superior thickness was normal. Nasal thickness was normal. Inferior thickness was normal. Average RNFL thickness 90 micrometers. Left Eye Reliability was good. Temporal thickness was normal. Superior thickness was normal. Nasal thickness was normal. Inferior thickness was normal. Average RNFL thickness 86 micrometers. Notes CDR 0.59 right eye (OD)/ 0.59 left eye (OS) Osiris Ceja MD OPHTH TOMOGRAPHY Final Result * Screening Mammogram Bilateral W Tiburcio (04/22/2024 2:06 PM PLANT DIRECTOR) Anatomical Region Laterality Modality Breast Bilateral Mammography Impressions 04/22/2024 3:36 PM PLANT DIRECTOR BI-RADS ATLAS category (overall): 1 - Negative There is no mammographic evidence of malignancy. A 1 year screening mammogram is recommended. The patient has been or will be contacted. We recommend annual screening mammography for women at average risk of breast cancer beginning at age 40, based on guidelines of the [place] [employer] (ACR Practice Parameter for the Performance of Screening and Diagnostic Mammography) and [place] [employer]. For women with and elevated risk of breast cancer, please refer to the ACR Practice Parameter for specific screening recommendations. The patient will be entered into a reminder system with a target due date of 1 year for her next screening exam. Narrative 04/22/2024 3:36 PM PLANT DIRECTOR Screening Mammogram Bilateral W Tiburcio: 04/22/24 The [...] IMG MAMMO PROCEDURES Fi nal Result * Dexa Axial Skeleton Bone Density 1 or 2 Site (05/16/2023 7:45 AM PLANT DIRECTOR) Anatomical Region Laterality Modality Body N/A Mammography 05/16/2023 5:08 PM PLANT DIRECTOR Narrative 05/16/2023 5:09 PM PLANT DIRECTOR EXAM DESCRIPTION: DEXA AXIAL SKELETON BONE DENSITY 1 OR MORE SITES REASON FOR STUDY: 68 y/o year old F with given history of: age related screening Postmenopausal Diesel Dinkey Operator/Model: [employer] A (S/N [id number]) CLINICAL INFORMATION: Current height: 60 inches Maximum [...] Garrett Hobbs M.D. MF: NADINE Report ID: [id number] Reading Location: [place] [address] Procedure Note Garrett Hobbs MD - 05/16/2023 EXAM DESCRIPTION: DEXA AXIAL SKELETON BONE DENSITY 1 OR MORE SITES REASON FOR STUDY: 68 y/o year old F with given history of: agerelated screening Postmenopausal Diesel Dinkey Operator/Model: [employer] A (S/N [id number]) CLINICAL INFORMATION: Current height: 60 inches Maximum [...] Garrett Hobbs M.D. MF: NADINE Report ID: [id number] Reading Location: [place] [address] Aleksandra Brody NP IMG DXA PROCEDURES Final Res ult * HM COLONOSCOPY (03/09/2022) Scribed Colonoscopy Normal Historical Provider HEALTH MAINTENANCE [...] a test for HCV RNA (test code 01109) is suggested. For additional information please refer to http://education.[employer]/faq/AAQ22l8 (This link is being provided for informational/ educational purposes only.) Blood specimen (specimen) 01/13/2020 8:44 AM CDT 01/13/2020 8:46 AM CDT Anjana Alexandra NP LAB MICROBIOLOGY - GENERAL OR DERABLES Final Result Performing Organization Address City/State/[facility] Co de Phone Number [facility] [address] [facility] [place] [address] from Last 3 Months or Most Recently Relevant to Health Maintenance Insurance [facility] [id number] [facility] [id number] [facility] [id number] MEDICARE Care Teams Land Checker Relationship Specialty Start Date End Date Magda Chicas MD PCP - General Internal Medicine 11/26/20
--- OUTSIDE RECORDS SUMMARY | 2024-10-23 15:23 | XMS_ITS | Clinical Summary ---
Author Organization [facility] Address [address] [place] [address] Care Team Providers Care Trimmer Helper Name Role Phone Magda Chicas MD Primary Care Provider Allergies Active Allergy Reactions Criticality Noted Date Comments Amoxicillin-Pot Clavulanate Diarrhea,Vomiting High 06/03/2019 [place] Eye irritation,Sneezing Low 05/20/2022 Codeine Stomach upset,Vomiting Low 02/20/2016 Latex Rash Medium 01/01/2019 [place] rash Linaclotide Diarrhea Medium 06/03/2019 Pollen Extracts [...] each nostril 2 (two) times a day Active estradioL (Estrace) 0.01 % (0.1 mg/gram) vaginal creamIndications:Bl adder prolapse, female, acquired Insert one gram vaginally daily at bedtime for 2 weeks and then DECREASE to 2 times per week (such as Monday/) 42.5 g 1 025 Active alendronate (FOSAMAX) [...] 11/23/2021 Assessment & Plan (04/16/2023 5:01 PM GREEN BUILDING ENERGY ENGINEER): This seems to be under pretty good control. No need for further intervention. Taking medication as needed. Assessment & Plan (02/07/2023 7:59 PM GREEN BUILDING ENERGY ENGINEER): She seems to do quite a bit better on this medication. She does have occasional breakthrough symptoms and I felt that she could try taking the txid-rvd-wopvckb pantoprazole when that happens. Otherwise no need for further intervention. Refills being given. Assessment & Plan (11/23/2021 9:18 AM CDT): I think this is likely with causing the cough. Increasing her PPI to twice a day. History of eye trauma 06/29/2021 Overview (06/29/2021): Hx R orbital floor blowout fx 04/2015, observed: --> Received facial CT report from [facility] in [place], [place]. --scanned in 12/2019 Assessment & Plan (10/15/2024 10:48 AM CDT): Hx R orbital floor blowout fx 04/2015, observed: --> Received facial CT report from [facility] in [place], [place]. --scanned in 12/2019 No residual visual issues. Doesn't get diplopia much. Sometimes gets and then blinks to resolve Assessment & Plan (07/11/2023 12:57 PM CDT): Hx R orbital floor blowout fx 04/2015, observed: --> Received facial CT report from [facility] in [place], [place]. --scanned in 12/2019 No residual visual [...] observed: --> Received facial CT report from [facility] in [place], [place]. --scanned in 12/2019 No residual visual issues. Doesn't get diplopia much. Sometimes gets and then blinks to resolve Assessment & Plan (06/29/2021 10:12 AM CDT): Hx R orbital floor blowout fx 04/2015, observed: --> Received facial CT report from [facility] in [place], [place]. --scanned in 12/2019 May be related [...] living. Assessment & Plan (04/11/2024 10:02 AM GREEN BUILDING ENERGY ENGINEER): Mild cataract OU. Vision is stable. Patient [...] (OU) Assessment & Plan (04/11/2024 11:26 AM GREEN BUILDING ENERGY ENGINEER): Full visual field (VF), IOPs normal range [...] (05/19/2022): Added automatically from request for surgery [id number] Cough 11/23/2021 01/11/2022 Assessment & Plan (11/23/2021 [...] 10/12/2023 Assessment & Plan (04/16/2023 5:02 PM GREEN BUILDING ENERGY ENGINEER): I do not find any evidence of [...] Date Type Department Care Team Description 10/15/2024 10:45 AM CDT Office Visit [facility] Ophthalmology [address] 6th [address], [address] [facility] [place] [address] Osiris Ceja MD Age-related nuclear cataract of both eyes (Primary Dx); Suspected glaucoma of both eyes; History of eye trauma; Asthenopia of both eyes 10/15/2024 10:20 AM CDT Imaging Exam [facility] Ophthalmology [address] [facility] [address] [place] [address] Suspected glaucoma of both eyes 09/30/2024 Orders Only [facility] Ophthalmology [address], [address] [place] [address] Osiris Ceja MD Suspected glaucoma of both eyes (Primary Dx) 08/12/2024 11:00 AM CDT Procedure visit [facility] Obstetrics and Gynecology [facility] [facility] 7th [address] [place] [address] Incomplete bladder emptying (Primary Dx) from Last 3 Months Immunizations Immunization Administration Dates Next Due COVID-19 mRNA ([email or web address]) 0.3 m L (30 mcg) vaccine (12 [...] nausea and vomiting) with narcotics Motion sickness Cataract Endometriosis 1979 CTS (carpal tunnel syndrome) 1998 Family History Medical History Relation Name Comments [...] grandmother Glaucoma Sister allergy induced asthma Son 1 Asthma Son 2 Alec Macular degeneration Neg Hx Ovarian cancer Neg Hx Retinal detachment Neg Hx Uterine cancer Neg Hx Relation Name Status Comments Brother Father dad Alive Maternal Grandmother grandma Mother mom Alive Paternal Grandfather Paternal Grandmother grandmother Sister Alive Son 1 Alive Son 2 Alec Alive Social History Tobacco Use Types Packs/Day [...] on file Legal Sex Female 8:40 AM GREEN BUILDING ENERGY ENGINEER Gender Identity Female 11/20/2020 6:50 PM CDT Sexual Orientation Straight 11/20/2020 6: 50 PM CDT 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 Not on file Not [...] AM CDT Pulse 80 05/20/2024 3:13 PM GREEN BUILDING ENERGY ENGINEER Temperature 36.7 C (98 F) 05/20/2024 3:13 PM GREEN BUILDING ENERGY ENGINEER Respiratory Rate 18 04/12/2023 3:30 PM GREEN BUILDING ENERGY ENGINEER Oxygen Saturation 97% 05/20/2024 3:13 PM GREEN BUILDING ENERGY ENGINEER Inhaled Oxygen Concentration - - Weight 87.5 kg (192 lb 12.8 oz) 07/15/2024 9:08 AM CDT Height 149.9 cm (4' 11) 07/15/2024 9:08 AM CDT Body Mass Index 38.94 07/15/2024 9:08 AM CDT Plan of Treatment Health Maintenance Due Date Last Done Comments Covid-19 Vaccine ( season) 2024 02/11/2024, 01/02/2023, 01/03/2022, Additional history exists Influenza Vaccine (#1) 2024 , 12/22/2022, 01/07/2022, Additional history exists Breast Cancer Screening-Mammogram 04/22/2025 04/22/2024, 04/04/2023, 03/22/2022, Additional history exists Osteoporosis Screening-Bone Density Scan 05/16/2025 05/16/2023, 12/04/2017 Depression Screening 05/20/2025 05/20/2024, 10/23/2023, 05/11/2023, Additional history exists Fall Risk Assessment 05/20/2025 05/20/2024, 04/10/2023, 05/25/2022, Additional history exists Well Visit 65+ 05/20/2025 05/20/2024, 03/27, 01/18/2022, Additional history exists DTaP/Tdap/Td Vaccine (2 - Td or Tdap) 11/26/2030 11/26/2020, 08/08/2000 Colon Cancer Screening-Colonoscopy 03/09/2032 03/09/2022, 07/24/2017 Hepatitis B Screening Completed 08/08/2000 , 01/24/2000, 12/02/1999 Hepatitis C Screening Completed 01/13/2020 Colon Cancer Screening-CT Colonography Discontinued 03/09/2022, 07/24/2017 Colon Cancer Screening-DNA Stool Discontinued 03/09/20, 07/24/2017 Colon Cancer Screening-FIT Discontinued 03/09/2022, Colon Cancer Screening-Sigmoidoscopy Discontinued 03/09/2022, 07/24/2017 Zoster Vaccine Completed 05/10/2022, 12/26, 03/27/2016 Pneumococcal vaccine 65+ Completed 04/27/2023 Medical Devices Implanted Type Area Weigh Tank Operator Device Identifier Shelf Expiration Date Model / Serial / Lot [employer] Tenodesis 6.25mm 15mm Acl Screw Interference Biocomposite Sterile [id number] - S0 - [id number] Implanted:Qty: 1 on 05/25/2022 by Armen Ortega MD at [facility] Screw Left: Calcaneus [employer] [id number] 01/24/2026 [id number] / 0 / [id number] [employer] Corkscrew Ii Fiberwire 5.5mm 16.3mm 2 2 Full Thread Follett Suture [id number] - [id number] Implanted:Qty: 1 on 05/25/2022 by Armen Ortega MD at [facility] Left: Calcaneus [employer] [id number] 04/26/2025 [id number] / / [id number] [employer] Corkscrew Ii Fiberwire 5.5mm 16.3mm 2 2 Full Thread Follett Suture [id number] - [id number] Implanted:Qty: 1 on 05/25/2022 by Armen Ortega MD at [facility] Left: Calcaneus [employer] [id number] 04/26/2025 [id number] / / [id number] Procedures Procedure Name Priority Date/Time Associated Diagnosis Comments OCT, OPTIC NERVE - OU - BOTH EYES Routine 10/15/2024 11:10 AM CDT Suspected glaucoma of both eyes SCREENING MAMMOGRAM BILATERAL W TIBURCIO Schedule Routine, Read Routine (OP Routine) 04/22/2024 2:06 PM GREEN BUILDING ENERGY ENGINEER Screening mammogram, encounter for DEXA AXIAL SKELETON BONE DENSITY 1 OR MORE SITES Schedule Routine, Read Routine (OP Routine) 05/16/2023 7:45 AM GREEN BUILDING ENERGY ENGINEER Abnormal bone density screening HM COLONOSCOPY Routine [...] Mammogram Bilateral W Tiburcio (04/22/2024 2:06 PM GREEN BUILDING ENERGY ENGINEER) Anatomical Region Laterality Modality Breast Bilateral Mammography Impressions 04/22/2024 3:36 PM GREEN BUILDING ENERGY ENGINEER BI-RADS ATLAS category (overall): 1 - Negative There is no mammographic evidence of malignancy. A 1 year screening mammogram is recommended. The patient has been or will be contacted. We recommend annual screening mammography for women at average risk of breast cancer beginning at age 40, based on guidelines of the [employer] (ACR Practice Parameter for the Performance of Screening and Diagnostic Mammography) and [employer]. For women with and elevated risk of breast cancer, please refer to the ACR Practice Parameter for specific screening recommendations. The patient will be entered into a reminder system with a target due date of 1 year for her next screening exam. Narrative 04/22/2024 3:36 PM GREEN BUILDING ENERGY ENGINEER Screening Mammogram Bilateral W Tiburcio: 04/22/24 The [...] 1 or 2 Site (05/16/2023 7:45 AM GREEN BUILDING ENERGY ENGINEER) Anatomical Region Laterality Modality Body N/A Mammography 05/16/2023 5:08 PM GREEN BUILDING ENERGY ENGINEER Narrative 05/16/2023 5:09 PM GREEN BUILDING ENERGY ENGINEER EXAM DESCRIPTION: DEXA AXIAL SKELETON BONE DENSITY 1 OR MORE SITES REASON FOR STUDY: 68 y/o year old F with given history of: age related screening Postmenopausal Weigh Tank Operator/Model: Swift Navigation A (S/N [id number]) CLINICAL INFORMATION: Current height: 60 inches Maximum [...] Garrett Hobbs M.D. MF: NADINE Report ID: [id number] Reading Location: [place] [address] Procedure Note Garrett Hobbs MD - 05/16/2023 EXAM DESCRIPTION: DEXA AXIAL SKELETON BONE DENSITY 1 OR MORE SITES REASON FOR STUDY: 68 y/o year old F with given history of: agerelated screening Postmenopausal Weigh Tank Operator/Model: Swift Navigation A (S/N [id number]) CLINICAL INFORMATION: Current height: 60 inches Maximum [...] Garrett Hobbs M.D. MF: NADINE Report ID: [id number] Reading Location: [place] [address] Aleksandra Brody NP IMG DXA PROCEDURES Final Res ult * COLONOSCOPY (03/09/2022) Pathologist [facility] Scribed Colonoscopy Normal Historical Provider HEALTH MAINTENANCE Final Result * Hepatitis C antibody (01/13/2020 8:44 AM CDT) Pathologist [facility] Hep C Ab NON-REACTI VE NON-REACT JAZLYN [facility] SIGNAL TO CUT-OFF 0.01 <1.00 [facility] Comment: HCV antibody was non-reactive. There is no laboratory evidence of HCV infection. In most cases, no further action is required. However, if recent HCV exposure is suspected, a test for HCV RNA (test code 24044) is suggested. For additional information please refer to http://education.[employer]/faq/WUA03o8 (This link is being provided for informational/ educational purposes only.) Blood specimen (specimen) 01/13/2020 8:44 AM CDT 01/13/2020 8:46 AM CDT Anjana Alexandra [facility] MICROBIOLOGY - GENERAL OR DERABLES Final Result CARMEN [place] [id number] [phone] from Last 3 Months or Most Recently Relevant to Health Maintenance Insurance [facility] [id number] [address] [facility] [id number] [facility] [id number] MEDICARE Care Teams Trimmer Helper Relationship Specialty Start Date End Date Magda Chicas MD PCP - General Internal Medicine 11/26/20
--- OUTSIDE RECORDS SUMMARY | 2024-10-23 15:23 | XMS_ITS | Encounter Summary ---
Author Organization [facility] Care Team Providers Care Marketing Representative Name Role Phone Magda Chicas MD Primary Care Provider Encounter Details Date Type Department Care Team (Latest Contact Info) Description 06/05/2017 Orders Only [facility] CLINCONV ProviderCésar MD [address] [place] [id number] Social History Tobacco Use Types Packs/Day Years Used Date Smoking Tobacco: Never Comments Unknown Sex and Gender Information Value Date Recorded Sex Assigned at Not on file Legal Sex Female 8:40 AM MANAGER ESTATE Gender Identity Female 11/20/2020 6:50 PM CDT [...] on filedocumented in this encounter Care Teams Marketing Representative Relationship Specialty Start Date End Date Magda Chicas MD PCP - General Internal Medicine 11/26/20 documented as of this encounter
--- OUTSIDE RECORDS SUMMARY | 2024-10-23 15:23 | XMS_ITS | Clinical Summary ---
Author Organization [facility] Address [address] [facility] [place] [address] Care Team Providers Care President And Ceo Name Role Phone Dewey Vieyra MD Primary Care Provider [phone] Source Comments [facility],non-owned Affiliates and Associated Physician Practices is amultiple site organization consisting of ambulatory clinics and hospital sitesin [place], [place], [place] and [place]. This disclosure is being madepursuant to the Care Everywhere program and may not contain all information available regarding this patient. Last updated 17.[facility] Allergies Active Allergy Reactions Criticality Noted Date Comments Codeine 02/20/2016 Latex Rash Medium 01/01/[address] [place] rash Medications * Be aware that medications may not be up to date on this document. Alwaysverify current medications with the patient. benzonatate (TESSALON) 200 MG capsule Take 1 Cap by mouth 3 times daily as needed for Cough 30 Cap 02/20/2016 Active Immunizations Immunization Administration Dates Next Due INFLUENZA VACCINE, QUADR. (F LUZONE; FLULAVAL; FLUARIX; AFLURIA QUADRIVALENT; 6MO+), 0.5 ML (IIV4) 01/01/2019 Social History Tobacco Use Types Packs/Day Years Used Date Smoking Tobacco: Never Assessed Comments Unknown Sex and Gender Information Value Date Recorded Sex Assigned at Not on file Legal Sex Female 7:37 AM DIRECTOR INBOUND SALES Gender Identity Not on file Sexual Orientation Not on file Last Filed Vital Signs Vital Sign Reading Time Taken Comments Blood Pressure 112/64 02/20/2016 2:23 PM DIRECTOR INBOUND SALES Pulse 68 02/20/2016 2:23 PM DIRECTOR INBOUND SALES Temperature 36.8 C (98.2 F) 02/20/2016 2:23 PM DIRECTOR INBOUND SALES Respiratory Rate 18 02/20/2016 2:23 PM DIRECTOR INBOUND SALES Oxygen Saturation 99% 02/20/2016 2:23 PM DIRECTOR INBOUND SALES Inhaled Oxygen Concentration - - Weight 81.6 kg (180 lb) 02/20/2016 2:23 PM DIRECTOR INBOUND SALES Height 154.9 cm (5' 1) 02/20/2016 2:23 PM DIRECTOR INBOUND SALES Body Mass Index 34.01 02/20/2016 2:23 PM DIRECTOR INBOUND SALES Plan of Treatment Health Maintenance Due Date Last Done Comments COLOGUARD (AGES 45-75) - COLON CA SCREENING 1957 COLON MONITORING 1957 COLONOSCOPY - COLON CA SCREENING 1957 CT COLONOGRAPHY - COLON CA SCREENING 1957 Colorectal Cancer Screening 1957 FIT - COLON CA SCREENING 1957 FLEX SIG - COLON CA SCREENING 1957 HEPATITIS C SCREENING 03/10/1975 DTAP/TDAP/TD VACCINES (1 - Tdap) 1976 PNEUMOCOCCAL VACCINE 50+ (1 of 1 - PCV) 2007 ZOSTER VACCINE (1 of 2) 2007 COVID-19 VACCINE (7 - 2023- season) 2023 01/03/2022, 12/27/2021, 08/30/2021, Additional history exists DEPRESSION SCREENING 03/27/2024 INFLUENZA VACCINE (#1) 2024 2, 01/03/2022, 01/04/2021, Additional history exists MAMMOGRAM 04/04/2025 04/04/2023, 04/04/2023 LIPID TESTING 07/26/2027 07/25/2022 Respiratory Syncytial Virus (RSV) Vaccine Pt: or [...] complete this topic MENINGOCOCCAL (Group B) VACCINE SHARED DECISION-MAKING Aged Out No longer eligible based on patient's age to complete this topic MENINGOCOCCAL GROUPS A/C/Y/W VACCINE Aged Out No longer eligible based on patient's age to complete this topic Insurance [facility] [employer] Care Teams President And Ceo Relationship Specialty Start Date End Date Dewey Vieyra MD [address] [facility] [address] [phone] PCP - General Internal Medicine 02/20/16
--- OUTSIDE RECORDS SUMMARY | 2024-10-23 15:23 | XMS_ITS | Patient Health Record ---
Author Organization [facility] ([address]) Address [address] [place] [address] Care Team Providers Care [place]ette Performer Name Role Phone Magda Chicas Primary Care Provider Netta Campo Unavailable [phone] Allergies Allergen (clinical drug ingredient) Drug/Non Drug Allergy documented on EMR Reaction Allergy Type Onset Date Status Amoxicillin-Pot Clavulanate vomiting, tolerates amoxillin by itself Drug Allergy Active linaclotide Linzess Unknown Drug Allergy Activ e Adhesive red rash Allergy Active codeine Codeine Unknown Drug Allergy Active Latex Latex red rash Allergy Active Results Component Value Reference Range Notes Spirometry Reviewed date: Interpretation:Normal Performing Lab: Notes/Report: Normal SpiroPreBronchodilator_FVC 2.06 SpiroPostBronchodilator_FEF25_75 0 SpiroPreBronchodilator_FEF25_75 2.1 SpiroPreBronchodilator_FEV1 1.72 SpiroPrecentPredictionPost_FEF25_75 0 SpiroPrecentPredictionPost_FEV1 0 SpiroPrecentPredictionPost_FEV1_OVER_FVC 0 SpiroPrecentPredictionPost_FVC 0 SpiroPrecentPredictionPre_FEF25_75 107.7 SpiroPrecentPredictionPre_FEV1 89.1 SpiroPrecentPredictionPre_FEV1_OVER_FVC 105.7 SpiroPrecentPredictionPre_FVC 84.1 SpiroPredicted_FEF25_75 1.95 SpiroPreBronchodilator_FEV1_OVER_FVC 83.39 SpiroPreBronchodilator_PEF 2.91 SpiroPostBronchodilator_FVC 0 SpiroPostBronchodilator_FEV1 0 SpiroPostBronchodilator_FEV1_OVER_FVC 0 SpiroPostBronchodilator_PEF 0 SpiroPredicted_FVC 2.45 SpiroPredicted_FEV1 1.93 SpiroPredicted_FEV1_OVER_FVC 78.91 SpiroPredicted_PEF 5.06 Reason For Referral No Information Medications Medication SIG (Take, Route, Frequency, Duration) Notes Start Date End Date Status Xyzal Allergy 24HR 5 MG 1 tablet in the evening Orally Once a day Active MiraLax Active Lisinopril 20 MG Oral; Duration: 90 Days Active One A Day Immunity Defense Active Fenofibrate 145 MG Oral; Duration: 90 Days Active Breztri Aerosphere A ctive Estradiol 0.1 MG/GM INSERT 1 GRAM VAGINA LLY AT BEDTIME X 2 WEEKS THEN DECREASE TO TWICE A WEEK Vaginal; Duration: 90 Days Active Azelastine HCl 137 MCG/SPRAY 2 sprays in each nostril Nasally Twice a day; Duration: 30 days Active Alendronate Sodium 70 MG Oral; Duration: 84 Days Active Omeprazole 40 MG 1 capsule 1/2 to 1 h our before morning meal Orally Once a day Active Social History Tobacco Use: Social History Observation Description Date Details (start date - stop date) Never Smoker NA - NA Sex Assigned At : Social History Observation Description Sex Assigned At Female Tobacco Control (Standard) Question Answer Notes Tobacco use: Nonsmoker Problems Problem Type SNOMED Code ICD Code Onset Dates Problem Status W/U Status Risk Notes Problem Chronic allergic conjunctivitis (70188442) Other chronic allergic conjunctivitis (H10.45) Active confirmed Problem Allergic rhinitis caused by pollen (disorder) (13725237) Allergic rhinitis due to pollen (J30.1) Active confirmed Problem Allergic rhinitis caused by animal hair and dander (150727297326509) Allergic rhinitis due to animal (cat) (dog) hair and dander (J30.81) Active confirmed Problem Allergic rhinitis (57305403) Other allergic rhinitis (J30.89) Active confirmed Problem Uncomplicated moderate persistent asthma (949522402) Moderate persistent asthma, uncomplicated (J45.40) Active confirmed Problem 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) Active confirmed Vital Signs Oximetry 97 % 07/22/2024 Blood pressure diastolic 74 mm Hg 07/22/2024 Height 60 in 07/22/2024 Blood pressure systolic 116 mm Hg 07/22/2024 Weight 193.0 lbs 07/22/2024 BMI 37.69 kg/m2 07/22/2024 Encounters Encounter Location Date Provider Diagnosis [facility] [address] [facility] [address] [place] [address] 05/29/2024 Netta Naqvi Allergic rhinitis du e to pollen J30.1 ; Moderate persistent asthma, uncomplicated J45.40 ; Other allergic rhinitis J30.89 ; Other chronic allergic conjunctivitis H10.45 ; Allergic contact dermatitis due to adhesives L23.1 and Latex allergy status Z91.[address] [address] 06/10/2024 Netta Naqvi Allergic rhinitis du e to pollen J30.1 ; Moderate persistent asthma, uncomplicated J45.40 ; Other allergic rhinitis J30.89 ; Other chronic allergic conjunctivitis H10.45 ; Allergic contact dermatitis due to adhesives L23.1 ; Latex allergy status Z91.040 and Allergic rhinitis due to animal (cat) (dog) hair and dander J30.[address] [address] 07/22/2024 Netta Naqvi Allergic rhinitis du e to pollen J30.1 ; Moderate persistent asthma, uncomplicated J45.40 ; Other allergic rhinitis J30.89 ; Other chronic allergic conjunctivitis H10.45 ; Allergic contact dermatitis due to adhesives L23.1 ; Latex allergy status Z91.040 and Allergic rhinitis due to animal (cat) (dog) hair and dander J30.81 Assessments Encounter Date Diagnosis (ICD Code) Assessment Notes Treatment Notes Treatment Clinical Notes Section Notes 05/29/2024 Allergic rhinitis due to pollen (ICD-10 - J30.1) History of allergic rhinitis and has received immunotherapy in the past. She took Shahla this am and will return in a few weeks for skin testing after holding antihistamines x5 days. 05/29/2024 Moderate persistent asthma, uncomplicated (ICD-10 - J45.40) Appears to have persistent asthma which is causing a cough. Spirometry today is normal. GERD may also be playing a role in the cough. Recommend starting daily Breztri 2 puffs BID and start prednisone for recent symptoms. F/u in a few weeks for skin testing to help determine if allergies are playing a role in asthma. 06/10/2024 Allergic rhinitis due to pollen (ICD-10 - J30.1) Given the history and symptoms, skin testing was performed to common aeroallergens to determine atopic status. Osiris clearly suffers from atopic disease based upon our skin testing today. Accordingly, we have introduced a new, aggressive medication regimen, discussed nasal washes and allergy-specific avoidance measures. We also discussed adjunctive therapies including subcutaneous, specific allergen immunotherapy as relates to the treatment and prevention of atopic disease. She is currently considering the risks, benefits and alternatives to this care. Risks: bleeding, infection, allergic reaction, anaphylaxis; Benefits: reduced need for medications, improved symptoms, disease modification. 06/10/2024 Moderate persistent asthma, uncomplicated (ICD-10 - J45.40) Appears to have persistent asthma which is causing a cough. Cough is now improved with steroids and recently starting daily Breztri 2 puffs BID. Spirometry last week is normal. GERD may also be playing a role in the cough and scheduled for EGD later this month. Continue Breztri and prn albuterol. 07/22/2024 Allergic rhinitis due to pollen (ICD-10 - J30.1) Osiris clearly suffers from atopic disease based upon our skin testing. Accordingly, we have introduced a new, aggressive medication regimen, discussed nasal washes and allergy-specific avoidance measures. We also discussed adjunctive therapies including subcutaneous, specific allergen immunotherapy as relates to the treatment and prevention of atopic disease. Claritin, Shahla and Zyrtec are alternatives that can be tried for allergic rhinitis due to drowsiness with Xyzal. 07/22/2024 Moderate persistent asthma, uncomplicated (ICD-10 - J45.40) Appears to have persistent asthma which is causing a cough. Cough is now improved with Breztri 2 puffs BID. Spirometry last month is normal. GERD may also be playing a role in the cough Continue Breztri and prn albuterol. 07/22/2024 Other allergic rhinitis (ICD-10 - J30.89) 06/10/2024 Other allergic rhinitis (ICD-10 - J30.89) 05/29/2024 Other allergic rhinitis (ICD-10 - J30.89) 05/29/2024 Other chronic allergic conjunctivitis (ICD-10 - H10.45) If symptoms persist, consider adding additional medications including intraocular antihistamine/mast cell stabilizer, PRN 06/10/2024 Other chronic allergic conjunctivitis (ICD-10 - H10.45) If symptoms persist, consider adding additional medications including intraocular antihistamine/mast cell stabilizer, PRN 07/22/2024 Other chronic allergic conjunctivitis (ICD-10 - H10.45) If symptoms persist, consider adding additional medications including intraocular antihistamine/mast cell stabilizer, PRN 06/10/2024 Allergic contact dermatitis due to adhesives (ICD-10 - L23.1) continue avoidance of problematic bandages 05/29/2024 Allergic contact dermatitis due to adhesives (ICD-10 - L23.1) continue avoidance of problematic bandages 07/22/2024 Allergic contact dermatitis due to adhesives (ICD-10 - L23.1) continue avoidance of problematic bandages 07/22/2024 Latex allergy status (ICD-10 - Z91.040) check IgE latex with next blood draw. 05/29/2024 Latex allergy status (ICD-10 - Z91.040) check IgE latex with next blood draw. 06/10/2024 Latex allergy status (ICD-10 - Z91.040) check IgE latex with next blood draw. 07/22/2024 Allergic rhinitis due to animal (cat) (dog) hair and dander (ICD-10 - J30.81) 06/10/2024 Allergic rhinitis due to animal (cat) (dog) hair and dander (ICD-10 - J30.81) 05/29/2024 Other 06/10/2024 Other 07/22/2024 Other Plan Of Treatment Next Appt Details Provider Name:Netta tucker, 01/20/2025 02:45:00 PM, [address] [place] [address], [phone], Insurance Providers Payer Name Payer Address Payer Phone Subscriber Number Group Number Insured Name Patient Relationship to Insured Coverage Start Date Coverage End Date [employer] [address] [place] [address] [phone] [id number] Osiris Dubose Self - patient is the insured Medical (General) History Medical History History ICD Code Diverticulitis Esophageal reflux Asthma Constipation Essential (primary) hypertension I10 Surgical History Surgery Date(Month/Year) Tonsillectomy hysterectomy Achilles Tendon repair Breast surgery Hospitalization History Reason Date(Month/Year) See Above
--- OUTSIDE RECORDS SUMMARY | 2024-10-23 15:23 | XMS_ITS | Encounter Summary ---
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
[2024-10-23 15:27] VITALS: BP 140/70; PULSE 71; RESP 16; TEMP 36.7; O2SAT 97
--- NOTE | 2024-10-23 15:54 | ED_ITS ---
HPI - Ear Problem General Chief complaint: Ear Stated complaint: LT Ear Pain Source: patient Mode of arrival: ambulatory Limitations: no limitations History of Present Illness HPI Narrative: 69-year-old female presented for complaint of left ear pain. Onset 3 days. Pain is described as dull, Says her hearing is altered, it sounds like everything is far away. Denies ear drainage, tinnitus, dizziness, nasal congestion, nausea, vomiting or fever. 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 MD Complaint: ear pain Related Data Home Medications ?Medication ?Instructions ?Recorded ?Confirmed ?Last Taken ?Type lisinopril 20 mg tablet 20 mg PO DAILY 03/25/19 02/21/24 Unknown History fenofibrate nanocrystallized 145 145 mg PO DAILY 12/12/20 02/21/24 Unknown History mg tablet pantoprazole 40 mg tablet,delayed 40 mg PO DAILY 12/12/20 02/21/24 Unknown History release alendronate 70 mg tablet 70 mg PO WE 02/21/24 02/21/24 Unknown History fexofenadine 60 mg tablet 60 mg PO Q12H 02/21/24 02/21/24 Unknown History fluticasone propionate 50 1 spray intranasal DAILY 02/21/24 02/21/24 Unknown History mcg/actuation nasal spray,suspension multivitamin 1 tablet PO DAILY 02/21/24 02/21/24 Unknown History polyethylene glycol 3350 17 gram 17 g PO DAILY 02/21/24 02/21/24 Unknown History oral powder packet (Miralax) budesonide 160 mcg-glycopyr 9 2 inh inhalation ONCE 05/12/24 Unknown History mcg-formot 4.8 mcg/actuation HFA inhaler (Breztri Aerosphere) Allergies Allergy/AdvReac Type Severity Reaction Status Date / Time adhesive Allergy Rash Verified 05/12/24 09:09 amoxicillin (From Augmentin) Allergy Rash Verified 05/12/24 09:09 cat dander Allergy Other Verified 05/12/24 09:09 clavulanic acid (From Allergy Rash Verified 05/12/24 09:09 Augmentin) latex Allergy Rash Verified 05/12/24 09:09 linaclotide (From Linzess) Allergy Gastrointestinal Verified 05/12/24 09:09 Upset mold Allergy Other Verified 05/12/24 09:09 pollen extracts Allergy Other Verified 05/12/24 09:09 tree and shrub pollen Allergy Other Verified 05/12/24 09:09 codeine AdvReac Gastrointestinal Verified 05/12/24 09:09 Upset Review of Systems Review of Systems: CONSTITUTIONAL: Denies malaise, chills, or fever. EYES: Denies visual changes, redness, or discharge. ENT: Denies rhinorrhea, congestion, sinus pain, and sore throat. Reports ear pain CARDIOVASCULAR: Denies chest pain, palpitations, or edema. RESPIRATORY: Denies cough or dyspnea. GASTROINTESTINAL: Denies abdominal pain, nausea, vomiting, diarrhea SKIN: Denies rash or itching. MUSCULOSKELETAL: Denies myalgia. NEUROLOGIC: Denies headache. All systems reviewed & are unremarkable except as noted in HPI and below PMFSH Past Medical History Medical History Asthma GERD (gastroesophageal reflux disease) High cholesterol HTN (hypertension) Surgical History Surgical History H/O hemorrhoidectomy banding 03/17 Social History Social History Smoking status: Never smoker Alcohol intake: never Living arrangements: alone Gender identity (if verbalized by the patient): Female Comments At time of signature, agree with nursing past medical, surgical, social and family history. There is no relevant family history pertinent to the presenting complaint Exam Narrative: GENERAL: Well-appearing, in no acute distress. EYES: conjunctivae clear ENT: Nares clear. Mucous membranes moist. Bilateral TMs normal light reflex, canals not erythematous, no drainage, no tragal tenderness. Oropharynx not erythematous without lesions. no drooling, no hoarseness, no trismus, uvula midline. NECK: Supple. No lymphadenopathy CHEST: Clear to auscultation, breath sounds equal. HEART: Regular rate and rhythm. SKIN: Warm, dry, no rash. NEURO: Alert and oriented x3. PSYCH: Normal mood and affect Course Course Emergency Course: Patient is aware of diagnosis, understands and agrees to treatment plan. Anticipatory guidance given. Patient agrees to follow-up as directed and is aware of reasons to seek care at the emergency department. Portions of this record may have been created with voice recognition software Level of Care: Express Care Visit Vital Signs Vital signs: Vital Signs Temperature 98.1 F 10/23/24 15:27 Pulse Rate 71 10/23/24 15:27 Respiratory Rate 16 10/23/24 15:27 Blood Pressure 140/70 10/23/24 15:27 Pulse Oximetry 97 10/23/24 15:27 Oxygen Delivery Room Air 10/23/24 15:27 Temperature 98.1 F 10/23/24 15:27 Pulse Rate 71 10/23/24 15:27 Respiratory Rate 16 10/23/24 15:27 Blood Pressure 140/70 10/23/24 15:27 Pulse Oximetry 97 10/23/24 15:27 Oxygen Delivery Room Air 10/23/24 15:27 Reviewed Medical Decision Making MDM Narrative Medical decision making narrative: Discussed physical exam findings, no apparent AOM noted. Advised supportive measures and signs/symptoms to go to the ER. Patient is appropriate for outpatient treatment and follow-up. Differential Diagnosis Differential Diagnosis: Coronavirus, strep pharyngitis, allergic rhinitis, upper respiratory tract infection, sinusitis, rhinosinusitis, nasopharyngitis, viral pharyngitis, otitis media, otitis externa, eustachian tube dysfunction, foreign body, cerumen impaction. Vital Signs Vital Signs: Vital Signs Temperature 98.1 F 10/23/24 15:27 Pulse Rate 71 10/23/24 15:27 Respiratory Rate 16 10/23/24 15:27 Blood Pressure 140/70 10/23/24 15:27 Pulse Oximetry 97 10/23/24 15:27 Oxygen Delivery Room Air 10/23/24 15:27 Temperature 98.1 F 10/23/24 15:27 Pulse Rate 71 10/23/24 15:27 Respiratory Rate 16 10/23/24 15:27 Blood Pressure 140/70 10/23/24 15:27 Pulse Oximetry 97 10/23/24 15:27 Oxygen Delivery Room Air 10/23/24 15:27 Discharge Plan Discharge Clinical Impression: Otalgia of left ear Patient Disposition: Home Condition: Stable Instructions: Antibiotic Form, Earache (ED) Additional Instructions: No infection in the ear at this time Tylenol as needed for pain Consider an ear plug to reduce air into the ear canal Follow up with your primary care provider as needed in 1 week Go to the ER for worsening symptoms or concerns Patient Language: Montserr[place] Prescriptions: No Action multivitamin [One A Day] Tablet 1 tablet PO DAILY polyethylene glycol 3350 [Miralax] 17 gram Powder In Packet 17 g PO DAILY fexofenadine [Shahla] 60 mg Tablet 60 mg PO Q12H alendronate 70 mg tablet 70 mg PO WE fluticasone propionate [Flonase] 50 mcg/actuation [place],Suspension 1 spray INTRANASAL DAILY Rx Instructions: administer into each nostril Breztri Aerosphere 160-9-4.8 mcg/actuation HFA aerosol inhaler 2 inh inhalation ONCE azithromycin [Zithromax Z-Brendan] 250 mg tablet See Rx Instructions .ROUTE .COMPLEX Qty: 6 0RF Rx Instructions: For 250 mg dose pack: take 500 mg today (day 1), then 250 mg for 4 days (days 2-5) benzonatate 100 mg capsule 100 mg PO TID PRN (Reason: cough) Qty: 20 0RF fenofibrate nanocrystallized 145 mg tablet 145 mg PO DAILY pantoprazole 40 mg tablet,delayed release (DR/EC) 40 mg PO DAILY lisinopril 20 mg tablet 20 mg PO DAILY Follow-up/Referrals: Juan Francisco,Magda Campuzano MD [Primary Care Provider] - Time of Disposition: 16:05
== END 2024-10-23 16:11 | disposition home or self-care (01) ==
PROVIDERS: Emergency Provider Nurse Practitioner Family; PCP Internal Medicine
DX: H92.02 Otalgia, left ear (principal); I10 Essential (primary) hypertension; E78.00 Pure hypercholesterolemia, unspecified; J45.909 Unspecified asthma, uncomplicated; K21.9 Gastro-esophageal reflux disease without esophagitis
CPT/HCPCS: 99211; G0463